=== PATIENT | female | born 1955 | race Caucasian/White ===

== ENCOUNTER 2025-01-17 14:09 | Outpatient (OUT) | payer MEDICARE, SELFPAY ==
--- OUTSIDE RECORDS SUMMARY | 2024-12-06 02:30 | XMS_ITS ---
Author Organization [facility] Address [address] [place] [address] Care Team Providers Care Edge Polisher Name Role Phone Chino Baker Primary Care Provider Unavailab Perez Cantor Unavailable [phone] REASON FOR VISIT Left Total Knee Arthroplasty @ [facility] Encounters Encounter Location Date Provider Diagnosis [facility] [address] [facility] [facility] [address] 12/06/2024 Perez Bolaños Primary osteoarthrit is of left knee M17.12 Assessments Encounter Date Diagnosis (ICD Code) Assessment Notes Treatment Notes Treatment Clinical Notes Section Notes 12/06/2024 Primary osteoarthritis of left k nee (ICD-10 - M17.12) Plan Of Treatment Next Appt Details Provider Name:Perez Bolaños, 02/04/2025 09:20:00 AM, [address] [place] [address], [place], [address], Progress Notes * HUMA PEDRO IDOB:[birth year] (69 yo F)Acc No.[id number]:12/06/2024 Patient:?HUMA PEDRO I :?Perez Bolaños, MDDOB:1955???Age:69 Y ???Sex:FemaleDate:12/06/2024Phone:[phone]:[address] [facility], [id number]:ABDIRIZAK Blank * Images: * Electronic signature of Perez Bolaños MD on 01/17/2025 at 02:12 PM ESTSign off status: Pending * Provider: Logan Bolaños MD Date: Generated for Printing/Faxing/eTransmitting on:?01/17/2025 02:12 PM EST
--- OUTSIDE RECORDS SUMMARY | 2024-12-24 04:50 | XMS_ITS ---
Author Organization [facility] Address [address] [place] [address] Care Team Providers Care Nut Threader Name Role Phone Might Chino REVELES Primary Care Provider Unavailab Perez Cantor Unavailable [phone] Jose R Holder Unavailable [phone] REASON FOR VISIT 1st Post-Op Left TKA 12/06/24, Status post left total knee arthroplasty 12/06/24 Medications Medication SIG (Take, Route, Frequency, Duration) Notes Start Date End Date Status Mobic 15 mg 1 tab(s) orally once a day; Dura tion: 30 days 06/10/2021Not-TakinglisinoprilActiveMobic 15 mg1 tab(s) orally once a day; Duration: 30 days08/27/2021Not-TakingMobic 15 mg1 tab(s) orally once a day; Duration: 45 days04/27/2022Not-TakingMobic 15 mg1 tab(s) orally once a day; Duration: 45 day(s)01/27/2022Not-TakingmeloxicamActiveMobic 15 mg1 tab(s) orally once a day; Duration: 30 days08/25/2022Not-Taking Problems Problem Type SNOMED Code ICD Code Onset Dates Problem Status W/U Status Risk Notes Problem Artificial knee join t present ([id number]) Status post left knee replacement (Z96.652) ActiveconfirmedProblemHistory of musculoskeletal operation (479661988)Aftercare following joint replacement surgery (Z47.1)Activeconfirmed Encounters Encounter Location Date Provider Diagnosis [facility] [address] [place] [address] 12/24/2024 Jose R Hloder Status post left kne e replacement Z96.652 and Aftercare following joint replacement surgery Z47.1 Assessments Encounter Date Diagnosis (ICD Code) Assessment Notes Treatment Notes Treatment Clinical Notes Section Notes 12/24/2024 Status post left knee replacemen t (ICD-10 - Z96.652) Status post left total knee qqitoudthjul58/2/2510ftercare following joint replacement surgery (ICD-10 - Z47.1)Status post left total knee ipgrzloxymdo65/2/2510OtherDiscussed treatment options at length with patient. Overall patient is doing very well. She is happy with her progress at this time. Symptoms are continuing to improve. Incision appears to be healing well at this time. Patient instructed to continue physical therapy to work on stretching and range of motion. Continue activity modification, rest, ice, compression, elevation for pain. Take Tylenol and anti-inflammatories if able for pain. She is in agreement today plan. All questions answered andconcerns addressed. Plan to see patient back in 6 weeks for repeat clinical and radiographic evaluation.Status post left total knee kwdpsizzurff58/2/25 Plan Of Treatment Treatment Notes Assessment Notes Other Discussed treatment options at length with patient. Overall patient is doing very well. She is happy with her progress at this time. Symptoms are continuing to improve. Incision appears to be healing well at this time. Patient instructed to continue physical therapy to work on stretching and range of motion. Continue activity modification, rest, ice, compression, elevation for pain. Take Tylenol and anti-inflammatories if able for pain. She is in agreement today plan. All questions answered and concerns addressed. Plan to see patient back in 6 weeks for repeat clinical and radiographic evaluation. Pending Test Test Name Order Date RSS: KNEE POST OP LEFT 3V AP,LAT, PATELL A [id number] 12/24/2024 Next Appt Details Follow Up: 6 Weeks, Reason: Provider Name:Perez Bolaños, 02/04/2025 09:20:00 AM, [address], [place], [address], Progress Notes * HUMA PEDRO:[birth year] (69 yo F)Acc No.[id number]:12/24/2024 Progress Notes Patient: HUMA FAYE I :?EVA Feliciano-CDOB:1955???Age:69 Y???Sex:FemaleDate:12/24/2024Phone:[phone]:[address] [facility], [id number]:Chino Might, ENERGY SALES CONSULTANT Subjective: * Chief Complaints: * 1 . 1st Post-Op Left TKA 12/06/24. 2. Status post left total knee arthroplasty 12/06/24. * HPI: ???HPI:? Patient is a 69-year-old female who presents for follow-up evaluation 2 weeks status post left total knee arthroplasty. Patient notes overall she is doing very well. She notes pain, swelling and symptoms are continuing to improve. She is no longer ambulating with an assistive device. She notes she is continuing to progress with physical therapy and is happy with her range of motion. She does note mild stiffness and pain with flexion but denies any pain with extension. She denies any pain to the incision site. Denies any obvious drainage. She denies any numbness or tingling. She notes her sleep has been improving over the past several days. She denies anyfevers, chills, chest pain, shortness of breath, calf pain. * ROS: ???Constitutional:?Denies?Chills.?Respiratory:?Denies?Shortness of Breath.?Cardiovascular:?Denies?Chest pain.? * Medical History: * Surgical History: L UMBAR 1985, BLADDER CYST 2002, TUBAL LIGATION 1977, Left total knee replacement 12/06/2024. * Medications: T aking meloxicam , Taking lisinopril , Not-Taking/PRN Mobic 15 mg tablet 1 tab(s) orally once a day , Not-Taking/PRN Mobic 15 mg tablet 1 tab(s) orally once a day , Not-Taking/PRN Mobic 15 mg tablet 1 tab(s) orally once a day , Not-Taking/PRN Mobic 15 mg tablet 1 tab(s) orally once a day , Not-Taking/PRN Mobic 15 mg tablet 1 tab(s) orally once a day Objective: * Vitals: * Examination: ???General examination: ???General Examination: Patient is a pleasant well-appearing female resting comfortably in the room. No signs of acute distress. Alert and orient x 3. Normal mood and affect. Answering questions appropriately. Ambulating with a mild antalgic gait. ???X-ray Imaging Studies: ???See dictation from [facility] MRI imaging studies:. ???Left Lower Extremity: ???Skin intact with well-healing anterior incision that is well-approximated withoutany erythema, edema, warmth, tenderness to palpation, drainage, dehiscence. Mild edema. Trace effusion. Mild tenderness to palpation medial and lateral joint line. No tenderness peripatellar. Knee range of motion 0 to 100 degrees. Pain with endpoint flexion. Knee stable varus valgus stress. Stable a nterior posterior drawer. Patella tracking centrally. 5 out of 5 quad strength. Motor intact quad, hamstring, TA, GSC, EHL, FHL. Sensation intact to light touch SPN, DPN, sural, saphenous, tibial nerve distribution. No calf pain. Negative Homans. Toes are warm and well-perfused. 2+ DP pulse. ??? Assessment: * Assessment: 1.?Status post left knee replacement - Z96.652 (Primary)???2.?Aftercare [facility] joint replacement surgery - Z47.1???Status post left total knee zxyironiwkoa75/2/25. Plan: * Treatment: ?Imaging: RSS: KNEE POST OP LEFT 3V AP,LAT, PATELLA [id number] Notes: Discussed treatment options at length with patient. Overall patient is doing very well. She is happy with her progress at this time. Symptoms are continuing to improve. Incision appears to be healing well at this time. Patient instructed to continue physical therapy to work on stretching andrange of motion. Continue activity modification, rest, ice, compression, elevation for pain. Take Tylenol and anti-inflammatories if able for pain. She is in agreement today plan. All questions answered and concerns addressed. Plan to see patient back in 6 weeks for repeat clinical and radiographicevaluation.?? * Procedure Codes: 7 3562 X-ray Knee, 3 view * Follow Up: 6 Weeks Forms: * Images: * Electronic signature of Jose R Holder PA-C on 01/17/2025 at 02:12 PM ESTSign off status: Pending * Provider: Andry Holder PA-C Date: 1 Generated for Printing/Faxing/eTransmitting on:?01/17/2025 02:12 PM EST History and Physical Notes * HPI (History of Present Illness) CategorySub-CategoryDetailNotesCategory NotesHPIPatient is a 69-year-old female who presents for follow-up evaluation 2 weeks status post left total knee arthroplasty. Patient notes overall she is doing very well. She notes pain, swelling and symptoms are continuing to improve. She is no longer ambulating with an assistive device. She notes she is continuing to progress with physical therapy and is happy with her range of motion. She does notemild stiffness and pain with flexion but denies any pain with extension. She denies any pain to the incision site. Denies any obvious drainage. She denies any numbness or tingling. She notes her sleep has been improving over the past several days. She denies any fevers, chills, chest pain, shortness of breath, calf pain Examination CategorySub-CategoryDetailNotesCategory NotesGeneral examination General Examination: Patient is a pleasant well-appearing female resting comfortably in the room. No signs of acute distress. Alert and orient x 3. Normal mood and affect. Answering questions appropriately. Ambulating with a mild antalgic gait X-ray Imaging Studies See dictation from [facility] MRI imaging studies: Left Lower ExtremitySkin intact with well-healing anterior incision that is well-approximated without any erythema, edema, warmth, tenderness to palpation, drainage, dehiscence. Mild edema. Trace effusion. Mild tenderness to palpation medial and lateral joint line. No tenderness peripatellar. Knee range of motion 0 to100 degrees. Pain with endpoint flexion. Knee stable varus valgus stress. Stable anterior posteriordrawer. Patella tracking centrally. 5 out of 5 quad strength. Motor intact quad, hamstring, TA, GSC, EHL, FHL. Sensation intact to light touch SPN, DPN, sural, saphenous, tibial nerve distribution. No calf pain. Negative Homans. Toes are warm and well-perfused. 2+ DP pulse
--- OUTSIDE RECORDS SUMMARY | 2025-01-02 08:15 | XMS_ITS | Encounter Summary ---
Author Organization [facility] Address [address], [address] [place] [address] Care Team Providers Care Traffic Assistant Name Role Phone Chino Yoder CHIEF MARKETING OFFICER - FIRE PRODUCTION OPERATOR Primary Care Provider Encounter Details DateTypeDepartmentCare Team (Latest Contact Info)Fccrfucswwb28/29/2025 9:15 AM EDT - 01/02/2025 11:59 PM EDTHospital Encounter [facility] [address] [place], [place] [id number] Cresencio Longoria Discharge Disposition: Home or Self Care Social History Tobacco UseTypesPacks/DayYears UsedDateSmoking Tobacco: NeverSmokeless Tobacco: Never Comments:never smoked Alcohol UseStandard Drinks/WeekCommentsNot Currently0 (1 standard drink = 0.6 oz pure alcohol)rarelyAUDIT-CAnswerDate RecordedQ1: How often do you have a drink containing alcohol?2-4 times a month11/11/2023Q2: How many drinks containing alcohol do you have on a typical day when you are drinking?1 or Q3: How often do you have six or more drinks on one occasion?Never11/11/2023Overall Financial Resource Strain (CARDIA)AnswerDate RecordedHow hard is it for you to pay for the very basics like food, housing, medical care, and heating?Patient fuseotsk59/06/2024HQ-2AnswerDate RecordedPHQ-9 Total Paxyl459Exercise Vital SignAnswerDate RecordedOn average, how many days per week do you engage in moderate to strenuous exercise (like a brisk walk)?6 days11/11/2023On average, how many minutes do you engage in exercise at this level?60 min11/11/2023RAPARE - TransportationAnswerDate RecordedIn the past 12 months, has lack of transportation kept you from medical appointments or from getting medications?No 07/19/2024In the past 12 months, has lack of transportation kept you from meetings, work, or from getting things needed for daily living?No07/19/2024 Housing Stability Vital SignAnswerDate RecordedUnable to Pay for Housing in the Last YearNot on file05/11/2023Number of Places Lived in the Last YearNot on file 05/11/2023In the last 12 months, was there a time when you did not have a steady place to sleep or slept in ashelter (including now)?Patient aroxtthw16/06/2024 Housing Stability Vital SignAnswerDate RecordedIn the last 12 months, was there a time when you were not able to pay the mortgage or rent on time?No12/06/2024In the past 12 months, how many times have you moved where you were living?0 12/06/2024t any time in the past 12 months, were you homeless or living in a half-way (including now)?No12/06/2024UDIT-CAnswerDate RecordedQ1: How often do you have a drink containing alcohol?Never12/27/2024Q2: How many drinks containing alcohol do you have on a typical day when you are drinking?Patient does not drink12/27/2024Q3: How often do you have six or more drinks on one occasion?Never12/27/2024Exercise Vital SignAnswerDate RecordedOn average, how many days per week do you engage in moderate to strenuous exercise (like a brisk walk)?6 days11/22/2024On average, how many minutes do you engage in exercise at this level?60 min11/22/2024Hunger Vital SignAnswerDate RecordedWithin the past 12 months, you worried that your food would run out before you got the money to buymore.Never true12/06/2024Within the past 12 months, the food you bought just didn't last and you didn't have money to get more.Never true12/06/2024PRAPARE - TransportationAnswerDate RecordedIn the past 12 months, has lack of transportation kept you from medical appointments or from getting medications?No 12/06/2024In the past 12 months, has lack of transportation kept you from meetings, work, or from getting things needed for daily living?No12/06/2024HC UtilitiesAnswerDate RecordedIn the past 12 months has the [employer], gas, oil, or water company threatened to shut off services in your home?No12/06/2024 Interpersonal Safety Domain Source: IP Abuse ScreeningAnswerDate Recorded Physical doimdPyozwa39/02/2025Verbal gnyupYjaamx50/02/2025Emotional abuseDenies 12/06/2024Financial bhclgGntsjr03/02/2025Sexual nakgkIegmyj02/02/2025 CommentsNoSex and Gender InformationValueDate RecordedSex Assigned at Ivlffx3911/11/2023 8:21 AM EDTLegal SqkZxwqvl70/10/2013 9:23 AM ESTGender Identity Qjraaj7711/11/2023 8:21 AM EDTSexual OrientationNot on filedocumented as of this encounter Medications at Time of Discharge MedicationSigDispense QuantityRefillsLast FilledStart DateEnd Date aspirin (SUBHA ASPIRIN) 325 MG tablet Take 1 tablet by mouth daily 30 tablet 12/06/2024 meloxicam (MOBIC) 15 MG tablet Indications:Chronic pain of left kneeTake 1 tablet by mouth daily 90 tablet Cranberry 50 MG CHEW Take 1 Dose by mouth daily magnesium oxide (MAG-OX) 400 (240 Mg) MG tablet Take 1 tablet by mouth daily lisinopril (PRINIVIL;ZESTRIL) 10 MG tablet Indications:Essential hypertensionTAKE ONE TABLET BY MOUTH DAILY 90 tablet Cyanocobalamin (VITAMIN B 12 PO) Take by mouth Glucosamine 500 MG CAPS Take by mouth Patient takes 2 capsules Multiple Vitamins-Minerals (ONE-A-DAY WOMENS 50 PLUS PO) Take 1 tablet by mouth daily Holbrook-3 Fatty Acids (FISH OIL) 1200 MG CAPS Take 1,200 mg by mouth daily IRON CR PO Take 65 mg by mouth daily calcium carbonate (OSCAL) 500 MG TABS tablet Take 600 mg by mouth 2 times dailydocumented as of this encounter Progress Notes * Cresencio Longoria - 01/02/2025 9:15 AM EDT [facility] Outpatient Physical Therapy Daily Note Patient: Marianela Corado : 1955 CSN #: [id number] Referring Physician: Perez Bolaños MD Date: 01/02/2025 Diagnosis: L knee OA, s/p L TKA Treatment Diagnosis: s/p L TKA, generalized weakness Onset Date: 12/06/24 PT Insurance Information: [employer] Medicare Total # of Visits Approved: 12 Per Physician Order Total # of Visits to Date: 11 No Show: 0 Canceled Appointment: 0 01/10/25 Plan of Care/Recert Due Pre-Treatment Pain: 3/10 Subjective: Pt reports with 3/10 pain. States pain was a little worse this morning Exercises: Exercise 1: HEP: ankle pumps x20 every hour, heel prop x2 min, 3x/day, quad sets 10 sec hold x10, 3x/day, supine heel slide with strap or seated heel slide x10, x3/day. Education on icing and elevation Exercise 2: SCI FIT x 10 min lvl 4 Exercise 3: step stretches 3 x 30 each//slant board stretch - held ext today Exercise 5: TKE ball on wall 15x 5 hold // TKE with Tband GTB x15//slant board stretch 3x30 Exercise 6: heel slide with therapist overpressure x 15 - no overpressure today Exercise 7: Star trac knee extension 1 pl 2x10 Exercise 9: standing march , heel raises, hamstring curls , hip abd/ext x 15 Exercise 10: FSU/SSU/SD 6 15x Exercise 11: sit to stands 10x2 no hands Manual: Joint Mobilization: knee ext mobs Other: PROM in seated position and supine Assessment Assessment: Pain remain mild. Continnues with moderate swelling around knee and calf. Supine knee flexion 108-110 degm extension -2 deg. Walking with no device with good step lucy demian. Will continue to progress towards goals Activity Tolerance Activity Tolerance: Patient tolerated treatment well Patient Education Patient Education: HEP Pt verbalized/demonstrated good understanding: [x] Yes [] No, pt required further clarification. Post Treatment Pain: 04/16 Plan Plan Frequency: 3 Plan weeks: 4 Goals (Total # of Visits to Date: 11) Short Term Goals Time Frame for Short Term Goals: 2 weeks Short Term Goal 1: Patient will be initiated with a HEP - MET Short Term Goal 2: Patient will improve L knee flexion ROM to at least 90* - MET : 105 degrees (12/19) Short Term Goal 3: Patient will improve L knee extension to at least -5* - Progressing (lacking 6 12/21) Group Home Goals Time Frame for Polisher Balance Screwhead Goals : 4 weeks Polisher Balance Screwhead Goal 1: Patient will be independent and compliant with a HEP Group Home Goal 2: Patient will improve L knee ROM to at least 0-115* for normal ambulation and stair negotiation. Progressing (12/21) lacking 6 - 107 degrees Group Home Goal 3: Patient will improve L LE strength to >/= 4/5 in all major joints and planes for ADLs. Polisher Balance Screwhead Goal 4: Patient will be able to negotiate a flight of stairs reciprocally using one hand rail. Polisher Balance Screwhead Goal 5: The patient will report 70% improvement in overall symptoms and function. Minutes Tracking: Time In: 915 Time Out: 1000 Minutes: 44 Timed Code Treatment Minutes: 43 Minutes Cresencio Jordan Date: 01/02/2025 Cosigned by Perez Whatley, PT at 01/02/2025 10:47 AM EDT documented in this encounter Plan of Treatment DateTypeDepartmentCare Team (Latest Contact Info)Idutacrirpo76/19/2026 2:20 PM EDTOffice Visit [facility] [address] [place] [address] Chino Yoder APRN - CHANEL [address] [place] [address] 6 month check11/28/2025 2:20 PM EDTOffice Visit [facility] [address] [place] [address] Chino Yoder APRN - CNP [address] [place] [address] AWVdocumented as of this encounter Goals GoalPatient Goal TypeAssociated ProblemsRecent ProgressPatient-Stated?Author loose weight LifestyleNoFuhrer, Cynthiadocumented as of this encounter Visit Diagnoses Not on filedocumented in this encounter Additional Health Concerns AssessmentNoted TimeA fall risk assessment has been completed for the patient 11/22/2024 11:11 AM EDTA Body Mass Index follow-up plan has been documented for the ulrkbhp5305/07/2022 7:18 AM ESTdocumented as of this encounter Care Teams Team MemberRelationshipSpecialtyStart DateEnd Date Chino Yoder APRN - CNP [address] [place] [address] PCP - GeneralFamily Medicine11/23/24documented as of this encounter
--- OUTSIDE RECORDS SUMMARY | 2025-01-04 08:38 | XMS_ITS | Encounter Summary ---
Author Organization [facility] Address [address], [address] [place] [address] Care Team Providers Care Product Delivery Specialist Name Role Phone Chino Yoder STEAM CRANE OPERATOR - ELECTRONIC DATA INTERCHANGE SPECIALIST Primary Care Provider Encounter Details DateTypeDepartmentCare Team (Latest Contact Info)Mdilgnsyate03/31/2025 9:38 AM EDT - 01/04/2025 11:59 PM EDTHospital Encounter [facility] Therapy [address] [place], [place] [phone] Perez Whatley, MARK Discharge Disposition: Home or Self Care Social [...] like food, housing, medical care, and heating?Patient nrurjans66/06/2024HQ-2AnswerDate RecordedPHQ-9 Total Boxgy863Exercise Vital SignAnswerDate RecordedOn average, how many days [...] sleep or slept in ashelter (including now)?Patient zmcunmpr99/06/2024 Housing Stability Vital SignAnswerDate RecordedIn the last 12 months, was there a time when you were not able to pay the mortgage or rent on time?No12/06/2024In the past 12 months, how many times have you moved where you were living?0 12/06/2024t any time in the past 12 months, were you homeless or living in a fci (including now)?No12/06/2024UDIT-CAnswerDate RecordedQ1: How often do you [...] before you got the money to buymore.Never true10/02/2025Within the past 12 months, the food you [...] RecordedIn the past 12 months has the [employer], gas, oil, or water company threatened to shut off services in your home?No12/06/2024 Interpersonal Safety Domain Source: IP Abuse ScreeningAnswerDate Recorded Physical dqimoOprntr14/02/2025Verbal eanqnSmfznq10/02/2025Emotional abuseDenies 12/06/2024Financial wbczbDtwrrp85/02/2025Sexual recizAyeunz99/02/2025 CommentsNoSex and Gender InformationValueDate RecordedSex Assigned at Aimfsz2211/11/2023 8:21 AM EDTLegal SjoUzlmpr81/10/2013 9:23 AM ESTGender Identity Lutprb3011/11/2023 8:21 AM EDTSexual OrientationNot on filedocumented as [...] PO) Take 1 tablet by mouth daily [place]-3 Fatty Acids (FISH OIL) 1200 MG CAPS Take 1,200 mg by mouth daily IRON CR PO Take 65 mg by mouth daily calcium carbonate (OSCAL) 500 MG TABS tablet Take 600 mg by mouth 2 times dailydocumented as of this encounter Progress Notes * Perez Whatley, PT - 01/04/2025 9:45 AM EDT [facility] Outpatient Physical Therapy Daily Note Patient: Marianela Corado : 1955 [facility] #: [id number] Referring Physician: Perez Bolaños MD Date: 01/04/2025 Treatment Diagnosis: s/p L TKA, generalized weakness Onset Date: 12/06/24 PT Insurance Information: [employer] Medicare Total # of Visits Approved: 12 Per Physician Order Total # of Visits to Date: 12 No Show: 0 Canceled Appointment: 0 02/03/25 Plan of Care/Recert Due Pre-Treatment Pain: 2/10 Subjective: Patient reports 2/10 knee pain coming into therapy. She reports she has felt good over the last couple of days. 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 Exercises: Exercise 2: SCI FIT x 8 min lvl 4 Exercise 7: Star trac knee extension 2 pl 2x10, hamstring curls 35# 2x10 Exercise 8: SLR 2x10 with focus on quad set Exercise 10: FSU/SSU/SD 6 15x Exercise 11: sit to stands 10x2 no hands Measures for physician update Manual: Joint Mobilization: knee ext mobs, patella mobs Soft Tissue Mobilizaton: STM to medial and lateral knee Other: PROM in seated position and supine Assessment Body Structures, Functions, Activity Limitations Requiring Skilled Therapeutic Intervention: Decreased functional mobility , Decreased ADL status, Decreased ROM, Decreased strength, Decreased endurance, Decreased balance, Decreased high- level IADLs, Decreased posture, Increased pain Assessment: The patient has attended her initial evaluation and 11 follow-up appointments working toward her residential goals. The patient reports she is 90% better overall. She reports she has been able to sleep well over the last 2 nights and reports she has been able to perform all of her normal ADLs besides leading horses. On reassessment the patient demonstrates improving L LE strength with hip flexors measuring 4-/5, quads 4+/5, hamstrings 5/5, tibialis anterior 5/5, gluteus medius 4+/5, improving knee ROM: -6-114* in supine, and she is able to ambulate without an AD with a slight antalgic gait pattern. Offered continued PT due to her knee extension ROM deficit, but she elected to continue independently and is planning to work out at [employer]. Reviewed a HEP along with a gym exercise program to continue. The patient will be placed on hold at this time. Activity Tolerance Activity Tolerance: Patient tolerated treatment well Patient Education Patient Education: HEP Pt verbalized/demonstrated good understanding: [x] Yes [] No, pt required further clarification. Post Treatment Pain: 04/16 Plan Plan Frequency: 3 Plan weeks: 4 Goals (Total # of Visits to Date: 12) Short Term Goals Time Frame for Short [...] least -5* - Progressing (lacking 6 12/21) Ship Propeller Finisher Goals Time Frame for Ship Propeller Finisher Goals : 4 weeks Correction Goal 1: Patient will be independent and compliant with a HEP Correction Goal 2: Patient will improve L knee ROM to at least 0-115* for normal ambulation and stair negotiation. Progressing (12/21) lacking 6 - 107 degrees Correction Goal 3: Patient will improve L LE strength to >/= 4/5 in all major joints and planes for ADLs. Correction Goal 4: Patient will be able to negotiate a flight of stairs reciprocally using one hand rail. Correction Goal 5: The patient will report 70% improvement in overall symptoms and function -MET 90%better Minutes Tracking: Time In: 45 Time Out: 1030 Minutes: 45 Timed Code Treatment Minutes: 43 Minutes Perez Whatley PT, DPT, OCS, Cert. DN Date: 01/04/2025 documented in this encounter Plan of Treatment DateTypeDepartmentCare Team (Latest Contact Info)Wnheppuauda94/19/2026 2:20 PM EDTOffice Visit [facility] [address] [place] [phone] Chino Yoder APRN - CNP [address] [phone] 6 month check11/28/2025 2:20 PM EDTOffice Visit [facility] [address] [place] [address] Chino Yoder APRN - CNP [address] [place] [address] AWVdocumented as of this encounter Goals GoalPatient Goal TypeAssociated ProblemsRecent ProgressPatient-Stated?Author loose weight LifestyleNoFuhrer Cynthiadocumented as of this encounter Visit Diagnoses Not on filedocumented in this encounter Additional Health Concerns AssessmentNoted TimeA fall risk assessment has been completed for the patient 11/22/2024 11:11 AM EDTA Body Mass Index follow-up plan has been documented for the yjewweo2905/07/2022 7:18 AM ESTdocumented as of this encounter Care Teams Team MemberRelationshipSpecialtyStart DateEnd Date Chino Yoder APRN - CNP [address] [place] [address] PCP - GeneralFamily Medicine11/23/24documented as of this encounter
--- OUTSIDE RECORDS SUMMARY | 2025-01-17 14:12 | XMS_ITS | Encounter Summary ---
Author [facility] Address [address], [address] [place] [address] Care Team Providers Care Incising Machine Operator Name Role Phone Chino Yoder YURI - WARP BLEACHING VAT TENDER Primary Care Provider Encounter Details DateTypeDepartmentCare Team (Latest Contact Info)Imddesgchnw04/30/2025Care Coordination [facility] Fire Prevention Inspector Felisa Nielsen LPN Episode status: Closed (Care Transitions) Social History Tobacco UseTypesPacks/DayYears UsedDateSmoking Tobacco: NeverSmokeless [...] like food, housing, medical care, and heating?Patient xitojpui03/06/2024HQ-2AnswerDate RecordedPHQ-9 Total Nvhhm148Exercise Vital SignAnswerDate RecordedOn average, how many days [...] steady place to sleep or slept in naylorelter (including now)?Patient eniwhezz67/06/2024 Housing Stability Vital SignAnswerDate RecordedIn the last 12 months, was there a time when you were not able to pay the mortgage or rent on time?No12/06/2024In the past 12 months, how many times have you moved where you were living?0 12/06/2024t any time in the past 12 months, were you homeless or living in a snf (including now)?No12/06/2024UDIT-CAnswerDate RecordedQ1: How often do you [...] RecordedIn the past 12 months has the electric, gas, oil, or water company threatened to shut off services in your home?No12/06/2024 Interpersonal Safety Domain Source: IP Abuse ScreeningAnswerDate Recorded Physical rzjvgYjbpgx54/02/2025Verbal zzcilBxkhyv34/02/2025Emotional abuseDenies 12/06/2024Financial geixaFdsfqc78/02/2025Sexual wxannHfirau71/02/2025 CommentsNoSex and Gender InformationValueDate RecordedSex Assigned at Ftxfuz6611/11/2023 8:21 AM EDTLegal TfpHwsnfd40/10/2013 9:23 AM ESTGender Identity Fhzkar7111/11/2023 8:21 AM EDTSexual OrientationNot on filedocumented as of this encounter Plan of Treatment DateTypeDepartmentCare Team (Latest Contact Info)Xkplfowpagx62/19/2026 2:20 PM EDTOffice Visit [address] [phone] Chino Yoder APRN - WARP BLEACHING VAT TENDER [address] [phone] 6 month check11/28/2025 2:20 PM EDTOffice Visit [facility] [address] [place] [address] Chino Yoder APRN - WARP BLEACHING VAT TENDER [address] [place] [address] AWVdocumented as of this encounter Goals GoalPatient Goal TypeAssociated ProblemsRecent ProgressPatient-Stated?Author loose weight LifestyleNoFuhrer, Cynthiadocumented as of this encounter Visit Diagnoses Not on filedocumented in this encounter Additional Health Concerns AssessmentNoted TimeA fall risk assessment has been completed for the patient 11/22/2024 11:11 AM EDTA Body Mass Index follow-up plan has been documented for the nyrdnnu6905/07/2022 7:18 AM ESTdocumented as of this encounter Care Teams Team MemberRelationshipSpecialtyStart DateEnd Date Might, Chino Guerra, ELECTRONIC EQUIPMENT SET UP OPERATOR - WARP BLEACHING VAT TENDER [address] [phone] PCP - GeneralFamily Medicine11/23/24documented as of this encounter
--- OUTSIDE RECORDS SUMMARY | 2025-01-17 14:12 | XMS_ITS ---
Author Organization [facility] Address [facility], [address] [place] [address] Care Team Providers Care Patrol Officer Name Role Phone Chino Yoder UNIVERSITY ADMINISTRATOR - SPRAY GUN STRIPER Primary Care Provider Care Transitions Status:Closed (Closed) Start date:12/10/2024 Enrollment date:12/10/2024 Enrollment reason:Discharged from inpatient End date:01/10/2025 Close reason:Patient graduated Related social drivers of health:Social Connections, Financial Resource Strain Continued Care and Services Coordination
--- OUTSIDE RECORDS SUMMARY | 2025-01-17 14:12 | XMS_ITS | Clinical Summary ---
Author Organization [facility] Address [address] [place], [place] [phone] Care Team Providers Care Sas Architect Name Role Phone Unavailable Primary Care Provider Unavailabl e Allergies No known active allergies Medications MedicationSigDispense QuantityRefillsLast FilledStart DateEnd DateStatus lisinopril (ZESTRIL, PRINIVIL) 10 mg tablet Take 10 mg by mouth once daily.Active aspirin 81 mg chewable tablet Take 81 mg by mouth once daily.Active Social History Tobacco UseTypesPacks/DayYears UsedDateSmoking Tobacco: NeverSmokeless Tobacco: NeverAlcohol UseStandard Drinks/WeekCommentsYes2 (1 standard drink = 0.6 oz pure alcohol)WeeklyCommentsUnknownSex and Gender InformationValueDate RecordedSex Assigned at BirthNot on fileLegal OtlJqbzuh78/26/2019 4:05 PM EDT Gender IdentityNot on fileSexual OrientationNot on file Last Filed Vital Signs Vital SignReadingTime TakenCommentsBlood Hiynnaeq483/7206 4:58 PM EDT Jbxbt0491 4:58 PM SQEUleuqsavytn43.1 ??C (98.7 ??F)08/30/2018 4:58 PM EDTRespiratory Xuhl2480 4:58 PM EDTOxygen Qiminldyue88%08/30/2018 4:58 PM EDTInhaled Oxygen Concentration--Jwsiuc70.8 kg (145 lb)08/30/2018 4:58 PM EDT Lidtst461.9 cm (5' 1 )08/30/2018 4:58 PM EDTBody Mass Index27. 4:58 PM EDT Plan of Treatment Not on file Insurance * Guarantor: Marianela Corado TypeRelation to PatientDate of BirthPhone Billing KhjadyjHnapazxlScsh52/01/1956 [address] [place] [address]
--- OUTSIDE RECORDS SUMMARY | 2025-01-17 14:13 | XMS_ITS | Patient Health Record ---
Author Organization [facility] e [facility] Address [address] [place] [address] Care Team Providers Care Risk Intern Name Role Phone Might Chino REVELES Primary Care Provider Unavailab Perez Cantor Unavailable [phone] Jose De JesusArchiea Unavailable [phone] Renea Murry Unavailable [phone] Jaqui Iqbal Unavailable Jose R Holder Unavailable [phone] Allergies No Known Allergies Results Component Value Reference Range Notes Type Screen Reviewed date:11/20/2024 10:08:45 AM Interpretation: Performing Lab: Notes/Report: [facility] [address] [place] [address] Electromechanisms Design Drafter: Ton Vigil MD Type + Screen Sample Expiration 12/09/2024,235 9 Type + ScreenArm Band Number [id number] + ScreenABO/Rh(D) O POSITIVEType + ScreenAntibody Screen NEGATIVEComp Metabolic Prof Reviewed date:11/20/2024 10:08:57 AM Interpretation: Performing Lab: Notes/Report: [facility] [address] [place] [address] Electromechanisms Design Drafter: Ton Vigil MDNA (Sodium)319870-235 mmol/LK (Potassium)5.33.7- 5.3 mmol/AJosrrmkr16628-977 mmol/UWJ61834-33 mmol/LAnion Ctz062-27 mmol/LGlucose 9474-99 mg/dLBUN (Urea N)168-23 mg/dLCreatinine0.70.50-0.90 mg/dLeGFR>90>60 mL/min/1.73m2 therapy that affects renal tubular secretion. results calculated using previous equations. eGFR results are calculated without a race factor using the 2020 CKD-EPI These results are not intended for use in patients <18 years of age. Careful clinical correlation is recommended, particularly when comparing to extra-renal metabolism of creatine, excessive creatine ingestion, or following The CKD-EPI equation is less accurate in patients with extremes of muscle mass, equation. BUN/CRE Rqmba266-00Ndyzqup17.78.6-10.4 mg/dLProtein, Total7.66.6-8.7 g/dLAlbumin 4.73.5-5.2 g/dLAlbumin/Glob Ratio1.61.0-2.5Bilirubin, Total0.20.00-1.20 mg/dL Alkaline Wcmy0437-069 U/YRFD9870-86 U/LVGQ3237-08 U/LPerforming Lab:see [address] [place] [id number] Urinalysis Micro Reviewed date:11/20/2024 10:08:49 AM Interpretation: Performing Lab: Notes/Report: [address] [place], [place] [address] Electromechanisms Design Drafter: Ton Vigil MDUrine WBC's0 TO 20-5 /HPFUrine RBC's0 TO 20-2 /HPF Epithelial cells0 TO 20-25 /HPFEpithelial, Renal0 TO 20 /HPFBacteriaTRACENONE Performing Lab:see [address] [place] [address] UA w Reflex Culture Reviewed date:11/20/2024 10:08:53 AM Interpretation: Performing Lab: Notes/Report: [address] [place] [id number] Electromechanisms Design Drafter: CRUZITO RobolorYellowYELClarity, UrineClearCLEAR Glucose,Semi-qnt,UrNEGATIVENEG mg/dLBilirubin, SemiQt,UrNEGATIVENEGKetones, UrineNEGATIVENEG mg/dLSpec. [place],Ur<1.0051.010-1.020Blood, UrineNEGATIVENEG PH,Ur7.55.0-9.0Protein, Semi-qnt,UrNEGATIVENEG mg/dLUrobilinogen,UrNormal0.0-1.0 EU/dLNitrite,UrNEGATIVENEGLeukocyte EsteraseTRACENEGPerforming Lab:see [facility] [address] [place] [address] [place] [address] XR CHEST (2 VW) Reviewed date:11/20/2024 10:07:37 AM Interpretation: Performing Lab: Notes/Report: EXAMINATION: Performed at: [address] [place] [address] Surgery Scheduling Reviewed date:12/10/2024 10:20:04 AM Interpretation: Performing Lab: Notes/Report: Primary Insurance Company:Medicare AetnaSurgeon/Assist:MILES Varelaurgery [facility] 06, 2024Procedure:Left Total Knee Arthroplasty CPT 02824Hppagzn Equipment:Kimi PersonaDiagnosis:Left Knee Pain/OAAdmission Type:surgery admit 23 hrAnesthesia Type/CPNB:Regional/SpinalBed 23 hrLatex AllergynoLab Location:[facility] APP NEEDEDScheduler:Meka Physician:Chino Willard/Pooja Reviewed date:11/20/2024 10:09:00 AM Interpretation: Performing Lab: Notes/Report: [address] [place] [address] Electromechanisms Design Drafter: JONNY Rob29.923.1-33.7 sec 62.0-94.0 IV Heparin Therapy Range: Performing Lab:see [address] [place] [address] PT Reviewed date:11/20/2024 10:09:03 AM Interpretation: Performing Lab: Notes/Report: [address] [place] [address] Electromechanisms Design Drafter: Ton Sturtz, MDProthrombin Time13.312.0-15.0 secINR1.0 High Anticoagulant Intensity: INR = 2.5-3.5 Moderate Anticoagulant Intensity: INR = 2.0-3.0 Therapeutic Range: Performing Lab:see [facility] [address] [place] [address] CBC with Diff Reviewed date:11/20/2024 10:09:11 AM Interpretation: Performing Lab: Notes/Report: [address] [place] [address] Electromechanisms Design Drafter: Ton Vigil MDWBC Count6.13.5-11.3 k/uLRBC Count4.643.95-5.11 m/bECwavqdjlko53.011.9-15.1 g/oCKmiaebgcnf07.036.3-47.1 %MCV92.782.6-102.9 fLMCH 30.225.2-33.5 quLIAW05.628.4-34.8 g/dLRDW12.011.8-14.4 %Platelet Giwit520877-405 k/uLMPV9.88.1-13.5 fLNRBC Automated0.00.0 per 100 WBCNeutrophil (Seg)4636-65 % Lsesiqbxuu6120-76 %Caozwmhi093-58 %Mbinzdxnne15-2 %Qpzngpnv85-4 %Immature Zwznixvkqac50 %Abs.Neutrophil (Seg)2.831.50-8.10 k/uLAbs. Lymph2.241.10-3.70 k/uLAbs. Monocyte0.650.10-1.20 k/uLAbs. Eosinophil0.250.00-0.44 k/uLAbs. Basophil0.090.00-0.20 k/uLAbs.Imm.Granulocyte<0.030.00-0.30 k/uLPerforming Lab: see [address] [place] [address] MRSA, DNA, Nasal Reviewed date:11/20/2024 10:08:42 AM Interpretation: Performing Lab: Notes/Report: [facility] [address] [place] [address] Electromechanisms Design Drafter: Herson Dobbs MD [address] [place], [place] [address] Electromechanisms Design Drafter: MILES Robpecimenoam Description.NASAL SWABMRSA, DNA, Nasal NEGATIVENEG NEGATIVE: MRSA DNA not detected by nucleic acid amplification. The test is not intended to identify patients with staphylococcal infections. Results should be used as an adjunct to nosocomial control efforts to identify Results should not be used to guide or monitor treatment for MRSA infections. patients needing enhanced precautions. Performing Lab:see note [facility] [address] [place] [address] [place] [id number] XR KNEE LEFT (1-2 VIEWS) Reviewed date:12/07/2024 07:37:33 AM Interpretation: Performing Lab: Notes/Report: EXAM: Performed at: [address] [place] [id number] Hgb Hct Reviewed date:12/07/2024 07:37:33 AM Interpretation: Performing Lab: Notes/Report: [address] [place], [place] [address] Electromechanisms Design Drafter: Ton Vigil MDHemoglobin11.711.9-15.1 g/mKFbqxuymnla69.936.3- 47.1 %Performing Lab:see [address] [place] [address] Basic Metabolic Prof Reviewed date:12/07/2024 07:37:33 AM Interpretation: Performing Lab: Notes/Report: [address] [place] [address] Electromechanisms Design Drafter: Ton Vigil MDNA (Sodium)397546-428 mmol/LK (Potassium)4.33.7- 5.3 mmol/KXggcvnnb06466-165 mmol/YIF84717-00 mmol/LAnion Wod714-97 mmol/LGlucose 76984-09 mg/dLBUN (Urea N)198-23 mg/dLCreatinine0.60.50-0.90 mg/dLeGFR>90>60 mL/min/1.73m2 Careful clinical correlation is recommended, particularly when comparing to extra-renal metabolism of creatine, excessive creatine ingestion, or following eGFR results are calculated without a race factor using the 2020 CKD-EPI results calculated using previous equations. therapy that affects renal tubular secretion. The CKD-EPI equation is less accurate in patients with extremes of muscle mass, equation. These results are not intended for use in patients <18 years of age. BUN/CRE Heira336-03Pjgpnrc0.38.6-10.4 mg/dLPerforming Lab:see [facility] [address] [place] [address] Reason For Referral Reason APPROVED FOR SYNVISC SERIES................................NOT SCHEDULED......................................[facility] FOR LEFT KNEE SYNVISC SERIES Diagnosis 1 Primary osteoarthrit is of left knee (M17.12) Referral Organization [facility] Office Referring Provider First Name Kenya Referring Provider Last Name Jose De Jesus Referring Provider Speciality Nurse Practitioner Referred Organization [facility] Referred Address [address],[place], [place],[address], Procedure 1 SYNVISC INJ 1 MG (J7 325) General Notes Lizz Santos 024 08:54:43 AM > AUTHORIZATION REQUEST FORM AND CLINICALS FAXED TO [employer] @ [phone] Kayla 02/14/2024 11:35:36 AM > PRECIOUSINGDanielle Kayla 02/16/2024 08:20:42 AM > CALLED ADELINA @ [phone] AND SPOKE WITH SREE I HADN'T RECEIVED AUTHORIZATION LETTER. AUTHORIZATION # [id number] APPROVED AND VALID 02/10/24-02/09/25. SHE REFAXED AUTHORIZATION TO ME. SCANNED INTO CHART., Alissa Cramer 02/16/2024 08:55:12 AM > Please order synvisc series for left knee., Justine Gamble 02/21/2024 02:09:33 PM >1 Synvisc Series ordered..IF PATIENT IS SCHEDULED FOR MARCH THIS REFERRAL NEEDS TO GO BACK TO [facility] SO THEY CAN VERIFY THAT INSURANCE IS ACTIVE FOR 2024, Essence Benites 02/22/2024 02:16:43 PM > SYNVISC SERIES RECEIVED, LOGGED, John ROGERS Monica 02/23/2024 01:34:14 PM > PATIENT IS SCHEDULED FOR MARCH, CAN YOU MAKE SURE INSURANCE IS ACTIVE FOR THEN? SEE RON NOTE ABOVE, Kailey English 02/23/2024 01:35:24 PM >CANNOT VERIFY UNTIL 03/07/2024 WE DON'T TYPICALLY HOLD COMMERSIAL INS FOR ELIGIBILITY, MEDICAIDS ONLY. IT IS THE PATIENTS RESPONSIBILITY TO MAKE US AWARE OF ANY CHANGES, Alissa Cramer 03/05/2024 09:59:35 AM >Per patient, insurance is not changing., Kailey English 03/05/2024 10:17:42 AM >NO FURTHER ACTION Referral Priority Routine Reason APPROVED.................................12/06/24................................ [employer] [facility] Left Total Knee Arthroplasty @ [facility] Diagnos is 1 Primary osteoarthritis of left knee (M17 .12) Diagnos is 2 Pain in left knee (M25.562) Referra l [facility] Referri ng Provide r First Name Perez mena Provide r Last Name Miky mena Provide r Special ity Orthopedic Surgery Referre d [facility]-23 HR OBS Referre d Address [address], [place],[address],[place] Procedu re 1 Arthroplasty Knee Total Med/Lat Compartm ents (03477) General Notes Chey Melendez 11/06/2024 12:48:20 PM >, Lizz Santos 11/06/2024 01:01:57 PM > AUTHORIZATION # [id number] APPROVED AND VALID 12/06/24-05/06/25 PER [employer]. SCANNED INTO CHART AND [facility] 11/06/2024 01:09:33 PM > Referra katiuska bose Routine Medications Medication SIG (Take, Route, Frequency, Duration) Notes Start Date End Date Status meloxicam ActiveMobic 15 mg1 tab(s) orally once a day; Duration: 30 days08/25/2022 Not-TakingMobic 15 mg1 tab(s) orally once a day; Duration: 30 days06/10/2021 Not-TakinglisinoprilActiveMobic 15 mg1 tab(s) orally once a day; Duration: 30 days08/27/2021Not-TakingMobic 15 mg1 tab(s) orally once a day; Duration: 45 days 04/27/2022Not-TakingMobic 15 mg1 tab(s) orally once a day; Duration: 45 day(s) 01/27/2022Not-Taking Social History Tobacco Use: Social History Observation Description Date Details (start date - stop date) Never Smoker NA - NA AUDIT-C (Standard) Question Answer Notes Did you have a drink containing alcohol in the p ast year? Yes How often did you have six or more drinks on one occasion in the past year? Declined to specify (0 point)How many drinks did you have on a typical day when you were drinking in the past year?Declined to specify (0 point)How often did you have a drink containing alcohol in the past year?Declined to specify (0 point)Xanmem5KtjkiicmtgzqzmBonksfudVsnhpex Control (Standard) Question Answer Notes Tobacco use: Nonsmoker Problems Problem Type SNOMED Code ICD Code Onset Dates Problem Status W/U Status Risk Notes Problem History of musculosk eletal operation (163657428) Aftercare following joint replacement surgery (Z47.1) ActiveconfirmedProblemAdhesive capsulitis of right shoulder (345812570859192) Adhesive capsulitis of right shoulder (M75.01)ActiveconfirmedProblem Osteoarthritis of knee (023923480)Primary osteoarthritis of left knee (M17.12) ActiveconfirmedProblemLong term current use of non-steroidal anti-inflammatory drug (766995673770159)NSAID long-term use (Z79.1)ActiveconfirmedProblem Artificial knee joint present (547636545711)Status post left knee replacement (Z96.652)Activeconfirmed Vital Signs Height 5'1 in 12/03/2024 Tpdqjo236 lbs5BMI28.34012/03/2024 Encounters Encounter Location Date Provider Diagnosis [facility] [address] [place] [address] 12/06/2024 Perez Bolaños Primary osteoarthritis of left knee M17.12 [facility] [address] [place] [address] 12/24/2024 Jose R Holder Status post left kne e replacement Z96.652 and Aftercare following joint replacement surgery Z47.1 [facility] [address] [place] [address] 02/06/2024 Kenya Qiuñonezb Primary osteoarthritis of left knee M17.12 [facility] [address] [place] [address] 03/21/2024 Kenya Wolffcomb Arthritis of knee, left M17.12 [facility] [address] [place] [address] 03/28/2024 Jaqui xx[place] Primary osteoarthritis of left knee M17.12 [facility] [address] [place] [address] 04/04/2024 Jaqui [place] Arthritis of knee, left M17.12 [facility] [address] [place] [address] 08/13/2024 Renea Lovely Primary osteoarthritis of left knee M17.12 [facility] [address] [place] [address] 12/03/2024 Renea Lovely Pain in left knee M25.562 and Primary osteoarthritis of left knee M17.12 [facility] [address] [place] [address] 09/20/2024 Perez Bolaños Pain in left knee M25.562 [facility] [place] [address] [place] [address] 11/06/2024 Perez Bolaños Pain in left knee M25.562 Assessments Encounter Date Diagnosis (ICD Code) Assessment Notes Treatment Notes Treatment Clinical Notes Section Notes 02/06/2024 Primary osteoarthritis of left k nee (ICD-10 - M17.12) 03/21/2024rthritis of knee, left (ICD-10 - M17.12)03/28/2024Primary osteoarthritis of left knee (ICD-10 - M17.12)04/04/2024rthritis of knee, left (ICD-10 - M17.12)08/13/2024Primary osteoarthritis of left knee (ICD-10 - M17.12) Left knee pain Left knee OA 09/20/2024Pain in left knee (ICD-10 - M25.562)11/06/2024Pain in left knee (ICD- 10 - M25.562)12/03/2024Primary osteoarthritis of left knee (ICD-10 - M17.12) Left knee pain Left knee osteoarthritis 12/03/2024Pain in left knee (ICD-10 - M25.562) Left knee pain Left knee osteoarthritis 12/06/2024Primary osteoarthritis of left knee (ICD-10 - M17.12)12/24/2024 Aftercare following joint replacement surgery (ICD-10 - Z47.1)Status post left total knee rxnvmocuhdsu72/2/2510Status post left knee replacement (ICD- 10 - Z96.652)Status post left total knee gimqyzsjrsnc38/2/2510Other Discussed treatment options at length with patient. Overall patient is doing very well. She is happy with her progress at this time. Symptoms are continuing to improve. Incision appears to be healingwell at this time. Patient instructed to continue physical therapy to work on stretching and range of motion. Continue activity modification, rest, ice, compression, elevation for pain. Take Tylenol and anti-inflammatories if able for pain. She is in agreement today plan. All questions answered andconcerns addressed. Plan to see patient back in 6 weeks for repeat clinical and radiographic evaluation.Status post left total knee sttwjnfxnjyt74/2/2512OtherAt this point, we discussed treatment options and alternatives with the patient. With the patients history of previous Synvisc series providing improvements we will go ahead and submit for another series. 03/21/2024OtherThe risks, benefits, and alternatives of the planned Synvisc injection were discussed with the patient. We also discussed possible complications, including (but not limited to) allergic reaction, pain, infection, and bleeding. The patient elected to proceed and verbally consented. Under sterile conditions, the left knee was injected with Synvisc through an anterior lateral portal. The injection was performed without difficulty and the patient tolerated the procedure well. The patient was instructed to ice and elevate and may resume normal activities tomorrow. They will call our office with adverse reactions or questions and we will see them back in one week for second Synvisc injection.03/28/2024OtherRisks, benefits, and alternatives of the plan for a Viscosupplementation injection were discussed with the patient. We also discussed possible complications, including (but not limited to) allergic reaction, pain, infection, and bleeding. The patient elected to proceed and verbally consented. The patient was instructed to ice and elevate and may resume normal activities tomorrow. They will call our office with adverse reactions or questions and we will see them back in 1 week for her third Synvisc injection. 04/04/2024OtherRisks, benefits, and alternatives of the plan for a Viscosupplementation injection were discussed with the patient. We also discussed possible complications, including (but not limited to) allergic re action, pain, infection, and bleeding. The patient elected to proceed and verbally consented. The patient was instructed to ice and elevate and may resume normal activities tomorrow. They will call our office with adverse reactions or questions and we will see them back as needed.08/13/2024OtherDiscussed treatment options with patient. At this time patient was given a handout to get home exerc ises. She is not interested in any corticosteroid injections or viscosupplementation injections at this time as they no longer give her any relief. Patient was encouraged to continue activity modification, rest, ice, elevation, and use of anti-inflammatories as needed for pain control. Patient was in agreement treatment plan. All questions and concerns were addressed at the time of the appointment. Will plan to see patient back in 3 months for repeat clinical evaluation. No radiographs required. Patient was encouraged call the office for any questions or concerns. Left knee pain Left knee OA 12/03/2024Other Discussed treatment options with patient, including operative and nonoperative interventions. Patient has failed to obtain significant relief from conservative treatments of left knee osteoarthritis including but not limited to activity modification, rest, ice, elevation, anti-inflammatories, topical rubs, bracing, home exercises, corticosteroid injections, and gel injections. Patient continues to have significant relief in the left knee that is interfering with her day-to-day activity and quality of life. Radiographs do demonstrate end-stage osteoarthritis to the left knee. Discussed with patient that she is a good candidate for left total knee arthroplasty for definitive treatment of her left knee osteoarthritis. Discussed procedure, risk, benefits, and alternatives with patient. Risks include but are not limited to bleeding, infection, fracture, hardware failure, neurovascular injury, continued pain, need for additional surgeries, VTE, and risk associated with anesthesia. Patient understood the risks and verbally consented to proceeding with left total knee arthroplasty. Patient to continue activity modification, rest, ice, elevation, and use of Tylenol as needed troll. Activity as tolerated otherwise. Patient was in agreement with treatment plan. All questions and concerns were addressed at the time of the appointment. Will plan to see patient back 2 weeks after surgery for initial postop evaluation. Patient encouraged call the office with any questions or concerns in the meantime. This note will serve as clinical documentation billed for today's appointment and for H&P purposes. Left knee pain Left knee osteoarthritis Plan Of Treatment Pending Test Test Name Order Date RSS: KNEE LEFT MIKE AP,MIKE PA ,LEFT LAT, MIKE SUNRISE - [id number] 08/13/2024 [facility] CBC WITH DIFF, CM P, PT/PTT INR, UA WITH REFLEX, TYPE and SCREEN BLOOD TYPE, TOTAL JOINT CLINIC PT/OT EVALUATION, EKG,CHEST XR, MRSA BILATERAL NARES 11/06/2024 RSS: KNEE POST OP LEFT 3V AP,LAT, PATELL A [id number] 12/24/2024 RSS- PT- s/p total knee 2-3 x per week f or 6 weeks 12/03/2024 Next Appt Details Provider Name:Perez Bolaños, 02/04/2025 09:20:00 AM, [address], [place], [address], Insurance Providers Payer Name Payer Address Payer Phone Subscriber Number Group Number Insured Name Patient Relationship to Insured Coverage Start Date Coverage End Date Medicare A[employer] [address] [place]ARCÍ[place] [phone] [id number] Maribel PEDRO - patient is the insured Medications Administered Medication Instructions Date of Administration Dosage Notes Synvisc Series mLSynvisc Gjzqcf56 mLSynvisc Eiytba13 mLSynvisc Wjczoh19 mLSynvisc Wjzdmd46 mLSynvisc Qlgvao21 mL Synvisc Qicybj59 mLSynvisc Vwzhjj93 mLSynvisc Csvcpb7904/04/2024 2 mL Medical (General) History Medical History History ICD Code High Blood Pressure: Yes Surgical History Surgery Date(Month/Year) Left total knee replacement 12/06/2024 TUBAL LIGATION 1978 BLADDER CYST 2003 LUMBAR 1986
--- OUTSIDE RECORDS SUMMARY | 2025-01-17 14:13 | XMS_ITS | Clinical Summary ---
Author Organization [facility] Address [address], [address] [place] [address] Care Team Providers Care Core Maker Helper Name Role Phone Chino Yoder TANNING WHEEL OPERATOR - TEA TASTER Primary Care Provider Allergies No known active allergies Medications MedicationSigDispense QuantityRefillsLast FilledStart DateEnd DateStatus Whiteface-3 Fatty Acids (FISH OIL) 1200 MG CAPS Take 1,200 mg by mouth dailyActive IRON CR PO Take 65 mg by mouth dailyActive calcium carbonate (OSCAL) 500 MG TABS tablet Take 600 mg by mouth 2 times dailyActive Multiple Vitamins-Minerals (ONE-A-DAY WOMENS 50 PLUS PO) Take 1 tablet by mouth dailyActive Glucosamine 500 MG CAPS Take by mouth Patient takes 2 capsulesActive Cyanocobalamin (VITAMIN B 12 PO) Take by mouthActive lisinopril (PRINIVIL;ZESTRIL) 10 MG tablet Indications:Essential hypertensionTAKE ONE TABLET BY MOUTH DAILY 90 tablet 5Active Cranberry 50 MG CHEW Take 1 Dose by mouth dailyActive magnesium oxide (MAG-OX) 400 (240 Mg) MG tablet Take 1 tablet by mouth dailyActive meloxicam (MOBIC) 15 MG tablet Indications:Chronic pain of left kneeTake 1 tablet by mouth daily 90 tablet 5Active aspirin (SUBHA ASPIRIN) 325 MG tablet Take 1 tablet by mouth daily 30 tablet 5Active pregabalin (LYRICA) 75 MG capsule Indications:S/P total knee arthroplasty, leftTake 1 capsule by mouth every 12 hours as needed (Breakthrough pain) for up to 14 days. Max Daily Amount: 150 mg 28 capsule 5Active Active Problems ProblemNoted DateDiagnosed DateS/P total knee arthroplasty, left12/06/2024 Tbquozniyzin09/01/2023Piriformis syndrome of right side11/05/2022dhesive capsulitis of right cjdmiipg45/01/8920Wfsymdrmswbtwr15/20/2017Bradycardia 06/22/2016Chronic pain of left knee10/30/2015Essential truftuleoyac73/15/2015 Primary osteoarthritis of left knee02/18/2015 Resolved Problems ProblemNoted DateDiagnosed DateResolved DateMorbid Encounters DateTypeDepartmentCare JdptHvykeiivipt49/06/2025Care Coordination [facility] Plug Maker Fatou Saenz, RN Episode status: Closed (Care Transitions)01/04/2025 9:38 AM EDT - 01/04/2025 11:[address] [facility] Physical Therapy [address] [place], [place] [phone] Perez Whatley, PT Discharge Disposition: Home or Self Care01/03/2025are Coordination [facility] Plug Maker Felisa Nielsen LPN Episode status: Closed (Care Transitions)01/02/2025 9:15 AM EDT - 01/02/2025 11:[address] [facility] Therapy [address] [place], [place] [phone] Cresencio Longoria Discharge Disposition: Home or Self Care12/31/2024 9:56 AM EDT - 12/31/2024 11:[address] [facility] Physical Therapy [address] [place] [phone] Cresencio Longoria Discharge Disposition: Home or Self Care12/28/2024 8:27 AM EDT - 12/28/2024 11:[address] [facility] Physical Therapy [address] [place] [phone] Lenny Pollard PTA Discharge Disposition: Home or Self Care12/28/2024are Coordination [facility] Plug Maker Fatou Saenz, RN Episode status: Closed (Care Transitions)12/27/2024 3:16 PM EDT - 12/27/2024 6:05 PM [facility] [address] [place], [place] [phone] Marquise Almaraz MD Left knee pain, unspecified chronicity (Primary Dx) Discharge Disposition: Home or Self Care12/27/20247330Flcanv52/22/2025 7:45 AM EDT - 12/26/2024 11:[address] [facility] Physical Therapy [address] [place], [place] [phone] Cresencio Longoria Discharge Disposition: Home or Self Care12/25/2024are Coordination [facility] Plug Maker Fatou Saenz RN Episode status: Closed (Care Transitions)12/24/2024 10:53 AM EDT - 12/24/2024 11:[address] [facility] Physical Therapy [address] [place], [place] [phone] Billie Foss PTA Discharge Disposition: Home or Self Care12/21/2024 10:34 AM EDT - 12/21/2024 11:[address] [facility] Physical Therapy [address] [place] [phone] Lenny Pollard PTA Discharge Disposition: Home or Self Care12/19/2024 8:15 AM EDT - 12/19/2024 11:[address] [facility] Physical Therapy [address] [place] [phone] Lenny Pollard PTA Discharge Disposition: Home or Self Care12/17/2024 10:53 AM EDT - 12/17/2024 11:[address] [facility] Physical Therapy [address] [place] [phone] Karlee [place] PTA Discharge Disposition: Home or Self Care12/14/2024 9:24 AM EDT - 12/14/2024 11:[address] [facility] Physical Therapy [address] [place] [phone] Radha Cabrera PTA Discharge Disposition: Home or Self Care12/11/2024 12:33 PM EDT - 12/11/2024 11:[address] [facility] Physical Therapy [address] [place] [phone] Perez Hernandez, PT Discharge Disposition: Home or Self Care12/10/2024 10:30 AM EDT - 12/10/2024 11:[address] [facility] Physical Therapy [address] [place] [phone] Perez Whatley, PT Discharge Disposition: Home or Self Care12/10/2024are Coordination [facility] Plug Maker Fatou Saenz RN Episode status: Closed (Care Transitions)12/06/2024 12:40 PM EDT - 12/06/2024 3:[address] 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 [address] [place] [phone] Perez Bolaños MD S/P total knee arthroplasty, left (Primary Dx) Discharge Disposition: Home or Self Care12/06/20247427Sapxea54/23/2025 8:11 AM EDT - 11/27/2024 11:[address] [facility] Physical Therapy [address] [place] [address] Perez Whatley, PT Discharge Disposition: Home or Self Care11/27/2024bstract [facility] [address] [place] [phone] Chino Yoder APRN - TEA TASTER 11/23/2024 1:00 PM EDTOffice Visit [facility] [address] [place] [phone] Chino Yoder APRN - TEA TASTER Medicare annual wellness visit, subsequent (Primary Dx); Essential hypertension; Preop examination; Chronic pain of left knee; Need for influenza iuazftvfrsr28/15/2025 10:32 AM EDT - 11/21/2024 11:59 PM EDT Hospital En[facility] [address] [place] [address] [phone] Discharge Disposition: Home or Self Care11/19/2024 9:54 AM EDT - 11/21/2024 11:59 PM EDTHospital Encounter [facility] [address] [place] [address] [phone] Discharge Disposition: Home or Self Care11/19/2024 8:53 AM EDT - 11/23/2024 11:59 PM EDTHospital Encounter [facility] PRE ADMIT [address] [place] [address] [phone] Discharge Disposition: Home or Self Carefrom Last 3 Months Immunizations ImmunizationAdministration DatesNext DueCOVID-19, Inactive, MODERNA BLUE border, Primary or Immunocompromised, (age 12y+)06/16/2021,01/16/2021,05/22/2020, 1COVID-19, SPIKEVAX (Moderna), (age 12y+), IM, 50mcg/0.5mL12/01/2022 Influenza Virus Bfapitu6612/17/2014Influenza, FLUAD, (age 65 y+), IM, Quadv, 0.5mL 11/26/2022,11/27/2021,12/20/2019Influenza, FLUAD, (age 65 y+), IM, Trivalent PF, 0.5mL11/23/2024,11/14/2023Influenza, FLUARIX, FLULAVAL, FLUZONE (age 6 mo+) and AFLURIA, (age 3 y+), Quadv PF, 0.5mL01/11/2019,01/02/2018,01/27/2016Influenza, FLUZONE High Dose (age 65 y+), IM, Quadv, 0.7mL1Pneumococcal, PCV20, PREVNAR 20, (age 6w+), IM, 0.5mL3Pneumococcal, PPSV23, PNEUMOVAX 23, (age 2y+), SC/IM, 0.5mL07/16/2019RSV, ABRYSVO, ( or age 60y+), PF, IM, 0.5mL12/02/2022TDaP, ADACEL (age 10y-64y), BOOSTRIX (age 10y+), IM, 0.5mL 10/30/2015Zoster Recombinant (Shingrix)11/17/2020,09/12/2020 Family History Medical HistoryRelationNameCommentsOtherFatherDPfell out side in winter and froze to deathArthritisMotherDorisOtherMotherDorisblood clotHigh Blood Pressure SisterRelationNameStatusCommentsFatherDPDeceasedMaternal GrandfatherDeceased Maternal GrandmotherDeceasedMotherDorisDeceasedPaternal GrandfatherDeceased Paternal GrandmotherDeceasedSisterAlive Social History Tobacco UseTypesPacks/DayYears UsedDateSmoking Tobacco: NeverSmokeless Tobacco: Never Tobacco Cessation:Counseling Given: Not Answered Comments:never smoked Alcohol UseStandard Drinks/WeekCommentsNot Currently0 (1 [...] like food, housing, medical care, and heating?Patient /06/2024PHQ-2AnswerDate RecordedPHQ-9 Total Roltw660Exercise Vital SignAnswerDate RecordedOn average, how many days per week do you engage in moderate to strenuous exercise (like a brisk walk)?6 days11/11/2023On average, how many minutes do you engage in exercise at this level?60 min4PRAPARE - TransportationAnswerDate RecordedIn the past 12 months, [...] sleep or slept in ashelter (including now)?Patient veuictzf75/06/2024 Housing Stability Vital SignAnswerDate RecordedIn the last 12 months, was there a time when you were not able to pay the mortgage or rent on time?No12/06/2024In the past 12 months, how many times have you moved where you were living?0 12/06/2024t any time in the past 12 months, were you homeless or living in a [place] (including now)?No12/06/2024UDIT-CAnswerDate RecordedQ1: How often do you [...] Domain Source: IP Abuse ScreeningAnswerDate Recorded Physical tevjbWeijvf43/02/2025Verbal rlxbxMimaro14/02/2025Emotional abuseDenies 12/06/2024Financial rsddwRozurg03/02/2025Sexual rzcmxScrgpd93/02/2025 CommentsNoSex and Gender InformationValueDate RecordedSex Assigned at Esjfzw5411/11/2023 8:21 AM EDTLegal ZkgHvxiiq08/10/2013 9:23 AM ESTGender Identity Cbhwmo2311/11/2023 8:21 AM EDTSexual OrientationNot on file Last Filed Vital Signs Vital SignReadingTime TakenCommentsBlood Dyogqwzm212/7112/27/2024 6:00 PM EDT Jarnf991812/27/2024 6:00 PM KPRExgaqngptjs32.1 ??C (98.7 ??F)12/27/2024 3:18 PM EDTRespiratory Xcwh9920 6:00 PM EDTOxygen Iisfdgeiwa42%12/27/2024 6:00 PM EDTInhaled Oxygen Concentration--Jnfokt93.1 kg (161 lb 1.6 oz)12/07/2024 5:30 AM TREKcxkfk306.9 cm (5' 1 )12/06/2024 9:57 AM EDTBody Mass Index30.441 9:57 AM EDT Plan of Treatment DateTypeDepartmentCare Team (Latest Contact Info)Ipjgerkyjsq92/19/2026 2:20 PM EDTOffice Visit [facility] [address] [place] [phone] Chino Yoder, YURI - CHANEL [address] [place] [address] 6 month check11/28/2025 2:20 PM EDTOffice Visit [facility] [address] [place] [phone] Chino Yoder Mari, TANNING WHEEL OPERATOR - TEA TASTER [address] [facility] [place] [address] AWVHealth MaintenanceDue DateLast DoneCommentsHepatitis C yhvemu4804/07/1972 Sigmoidoscopy/CT nhnnqimlsadq07/01/1161Lblujksolur96FIT/FOBT: Average risk/TaP/Tdap/Td vaccine (2 - Td or Tdap)10/29/2025 10/30/2015Depression Tbfpmt66/, 11/22/2024reast cancer screen /, 11/11/2022, 10/22/2021, Additional history exists Colorectal Cancer Bvqjxf0412/04/2027Fecal-DNA (Cologuard): Average risk12/04/2027 12/03/2024, 11/26/20210845Geetpu49/05/203003/07/2024, 05/09/2023, 08/05/2022, Additional history existsDiabetes djtaqzKdhkeqzhcxmn26/18/2016DEXA (modify frequency per FRAX score)Hhlxcyibd24/06/2017Shingles zzilivuMxldxydhs57/13/2021, 09/12/2020espiratory Syncytial Virus (RSV) or age 60 yrs+Completed 3Pneumococcal 50+ years YssmqhnGyerkjkdf54/17/2024, 12/22/2022, 07/16/2019Annual Wellness Visit (Medicare Advantage)Knqcpdckt14/19/2025, 11/14/2023, 11/05/2022, Additional history existsFlu ekpraqxShbkibdmu58/19/2025, 11/14/2023, 11/26/2022, Additional history existsCOVID-19 VaccineCompleted 12/26/2024, 08/06/2024, 11/24/2023, Additional history existsHepatitis A vaccine Aged OutNo longer eligible based on patient's age to complete this topic Hepatitis B vaccineAged OutNo longer eligible based on patient's age to complete this topicHib vaccineAged OutNo longer eligible based on patient's age to complete this topicMeningococcal (ACWY) vaccineAged OutNo longer eligible based on patient's age to complete this topicMeningococcal B vaccineAged OutNo longer eligible based on patient's age to complete this topicPolio vaccineAged OutNo longer eligible based on patient's age to complete this topic Goals GoalPatient Goal TypeAssociated ProblemsRecent ProgressPatient-Stated?Author loose weight LifestyleNoFuhrMelodie barnes [employer] ImplantedTypeAreaManufacturerDevice IdentifierShelf Expiration DateModel / Serial / LotImpl Knee Psn Fem Cr Cmt Ccr Std Sz8 L - [id number] Implanted:Qty: 1 [facility] 12[facility]06[facility] [employer]nee[employer]-PMM09/02/[id number] / / [id number] Bne 40gm Hi Visc Radpq For Rev Surg - [id number] Implanted:Qty: 2 on 12/06/20[facility] Knee[employer]IMMER [employer]-[id number] / / [id number] Stem Sz E 5deg L Tibl Knee Reed Shelley Tib Persona - [id number] Implanted:Qty: 1 on 12/06/2024 by Perez Bolaños MD at [facility]: Knee[employer]IMMER [employer]-[id number] / / [id number] Pat Scu56ps Thk8.5mm Std Knee Vivacit-E Reed - [id number] Implanted:Qty: 1 on 12/06/2024 by Perez Bolaños MD at [facility]: Knee[employer]IMMER [employer]-WD06/14/[id number] / / [id number] Mc Ve Asf L 14mm 8-11 Ef - [id number] Implanted:Qty: 1 on 12/06/2024 [facility] [employer]-WD02/10/[id number] / / [id number] Procedures Procedure NamePriorityDate/TimeAssociated DiagnosisCommentsVAS DUP LOWER EXTREMITY VENOUS GXQIBQRL15/23/2025 4:23 PM EDT PROTIME-MXAAXZE8512/27/2024 4:05 PM EDT CBC WITH AUTO YRAEHBLDLMLLTTSZ19/23/2025 4:05 PM EDT BASIC METABOLIC OFDUGJWDT12/23/2025 4:05 PM EDT XR KNEE LEFT (3 VIEWS)STAT1 3:57 PM EDT HEMOGLOBIN AND ZRSEWYPZPKRqvwdrc92/03/2025 5:50 AM EDT BASIC METABOLIC AMGCPVlzbnmp92/03/2025 5:50 AM EDT XR KNEE LEFT (1-2 VIEWS)Ahtxtie3112/06/2024 3:33 PM EDT OK ARTHRP KNE CONDYLE&PLATU MEDIAL&LAT ENMYUEIUATYA02/02/2025 12:34 PM EDT Left knee pain, unspecified chronicity Special Needs Kimi kbnqcge92 hour observationRegional/spinalNeeds preop medical clearanceAssist-Evelyne notified 11/27 start time 1240Block per anesthesia ANESTHESIA SPINAL VWPTINcifise67/02/2025 12:33 PM EDT HC PERIPHERAL BLOCK - FEMORAL SINGLE OR SAPHENOUS W/IMG GCIPwovexl32/02/2025 12:20 PM EDT XR CHEST (2 VW)Qbhjnvz7311/19/2024 10:34 AM EDT EKG 12-TAFDFchyrwk72/15/2025 9:45 AM EDT TYPE AND JYFSJWQsgzhpx23/15/2025 9:38 AM EDT MICROSCOPIC WTIJMOHDDSHbjswbw93/15/2025 9:38 AM EDT URINALYSIS WITH REFLEX TO BLJPXHSXzwmsor59/15/2025 9:38 AM EDT STUIErbxtyr58/15/2025 9:38 AM EDT PROTIME-EVVJwekrba38/15/2025 9:38 AM EDT COMPREHENSIVE METABOLIC ZUVFHUfzqxkw38/15/2025 9:38 AM EDT CBC WITH AUTO UGVOGJBVEZWDIjaevoz69/15/2025 9:38 AM EDT MRSA DNA PROBE, SWCERUjvzgef51/15/2025 9:38 AM EDT LIPID OLNSKUnzcstt41/05/2025 7:04 AM EST Essential hypertension Dyslipidemia ROHITH ASH DIGITAL SCREEN SELF REFERRAL W OR WO CAD NVXAMYJSHSiffkmt20/27/2024 11:18 AM EDT Visit for screening mammogram FECAL DNA COLORECTAL CANCER SCREENING (COLOGUARD)Ucqoyqe4411/26/2021 6:25 AM EDT Screening for colorectal cancer POCT FECAL IMMUNOCHEMICAL TEST (FIT)Rlxlgzk6508/29/2020 1:43 PM EDT Colon cancer screening DEXA BONE DENSITY AXIAL COAJXZRSZxlhhbg97/06/2017 9:55 AM EDT Postmenopausal HEMOGLOBIN O9MSobjoyr48/18/2016 1:22 PM EDT Elevated glucose from Last 3 Months or Most Recently Relevant to Health Maintenance Results * Vascular duplex lower extremity venous left (12/27/2024 4:23 PM EDT)Anatomical RegionLateralityModalityVascular UltrasoundSpecimen (Source)Anatomical Location / LateralityCollection Method / VolumeCollection TimeReceived Time Narrative 12/27/2024 8:30 PM EDT No evidence of acute deep vein or superficial vein thrombosis in the left lower extremity. Right Lower Venous For comparison purposes, the right common femoral vein was briefly interrogated. The vein demonstrates normal color filling and compressibility. Doppler flow was phasic and spontaneous. Left Lower Venous No evidence of acute deep vein or superficial vein thrombosis. The common femoral, saphenofemoral junction, profunda femoral, femoral, popliteal, greater saphenous, and small saphenous veins were imaged in the transverse view and showed normal compressibility. The common femoral, popliteal, and middle femoral veins were imaged in the longitudinal view and showed normal color filling and normal phasic and spontaneous flow. Common Femoral Vein: Patent, compressible and fully compressible. Greater Saphenous Vein: Fully compressible. Vessel and ankle patent, compressible. Saphenofemoral Junction: Patent, compressible. Small Saphenous Vein: Patent, compressible and fully compressible. Profunda Femoral Vein: Patent, compressible. Femoral Vein: Patent, compressible. Proximal Femoral Vein: Patent, compressible and fully compressible. Middle Femoral Vein: Patent, compressible and fully compressible. Distal Femoral Vein: Patent, compressible and fully compressible. Popliteal Vein: Patent, compressible and fully compressible. Gastrocnemius Vein: Patent, compressible and fully compressible. Posterior Tibial Vein: Patent, compressible and fully compressible. Peroneal Vein: Patent, compressible and fully compressible. Flat Knitter Details A mckeon scale, color Doppler imaging, spectral Doppler analysis and B-mode ultrasound was performed.During the study longitudinal and transverse views were obtained. Pulsed wave doppler was performed. Overall the study quality was good. Authorizing ProviderResult TypeResult StatusIlya [facility] VASCULAR ORDERABLES Final Result * (ABNORMAL) CBC with Auto Differential (12/27/2024 4:05 PM EDT) Only the most recent of2 resultswithin the time period is included. ComponentValueRef RangeTest MethodAnalysis TimePerformed AtPathologist Signature WBC4.03.5 - 11.3 k/uL12/27/2024 4:05 PM [facility] LABRBC 3.92(L)3.95 - 5.11 m/uL12/27/2024 4:05 PM [facility] Rmfkvhkrkq63.6(L)11.9 - 15.1 g/dL12/27/2024 4:05 PM [facility] JEANgibvfrgun80.6(L)36.3 - 47.1 %12/27/2024 4:05 PM [facility] LKEVER62.882.6 - 102.9 fL12/27/2024 4:05 PM [facility] FKMYBH63.625.2 - 33.5 pg12/27/2024 4:05 PM [facility] NHETOTW14.628.4 - 34.8 g/dL12/27/2024 4:05 PM [facility] JKOQIB42.111.8 - 14.4 %12/27/2024 4:05 PM [facility] COHWwsvewngx216456 - 453 k/uL12/27/2024 4:05 PM [facility] LABMPV9.68.1 - 13.5 fL12/27/2024 4:05 PM [facility] LABNRBC Automated0.00.0 per 100 WBC12/27/2024 4:05 PM [facility] LABNeutrophils %4836 - 65 %12/27/2024 4:05 PM [facility] LABLymphocytes %3024 - 43 %12/27/2024 4:05 PM [facility] LABMonocytes %15(H)3 - 12 %12/27/2024 4:05 PM [facility] LABEosinophils %41 - 4 %12/27/2024 4:05 PM [facility] LABBasophils %3(H)0 - 2 %12/27/2024 4:05 PM [facility] LABImmature Granulocytes %00 %12/27/2024 4:05 PM [facility] LABNeutrophils Absolute1.911.50 - 8.10 k/uL12/27/2024 4:05 PM [facility] LABLymphocytes Absolute1.181.10 - 3.70 k/uL 12/27/2024 4:05 PM [facility] LABMonocytes Absolute0.610.10 - 1.20 k/uL12/27/2024 4:05 PM [facility] LABEosinophils Absolute0.170.00 - 0.44 k/uL12/27/2024 4:05 PM [facility] LABBasophils Absolute0.110.00 - 0.20 k/uL12/27/2024 4:05 PM [facility] LABImmature Granulocytes Absolute<0.030.00 - 0.30 k/uL12/27/2024 4:05 PM [facility] LABSpecimen (Source)Anatomical Location / LateralityCollection Method / VolumeCollection TimeReceived TimeBloodBLOOD SPECIMEN / Nbhfafq8212/27/2024 4:05 PM EDT1 4:11 PM EDT Narrative Authorizing ProviderResult TypeResult StatusMarquise Almaraz MDHEMATOLOGY ORDERABLES Final ResultPerforming OrganizationAddressCity/State/ZIP CodePhone Number [facility] [address] [phone] * Protime-INR (12/27/2024 4:05 PM EDT) Only the most recent of2 resultswithin the time period is included. ComponentValueRef RangeTest MethodAnalysis TimePerformed AtPathologist Signature Epovxqz50.712.0 - 15.0 sec12/27/2024 4:05 PM [facility] INR1. 4:05 PM [facility] LABComment: ? Therapeutic Range: Moderate Anticoagulant Intensity: INR = 2.0-3.0 High Anticoagulant Intensity: INR = 2.5-3.5 Specimen (Source)Anatomical Location / LateralityCollection Method / Volume Collection TimeReceived TimeBloodBLOOD SPECIMEN / Lmbwepv7612/27/2024 4:05 PM EDT 12/27/2024 4:11 PM EDT Narrative Authorizing ProviderResult TypeResult StatusMarquise Almaraz MDHEMATOLOGY ORDERABLES Final ResultPerforming OrganizationAddressCity/State/ZIP CodePhone Number [facility] [address] [id number], [facility] [phone] * (ABNORMAL) BMP (12/27/2024 4:05 PM EDT) Only the most recent of2 resultswithin the time period is included. ComponentValueRef RangeTest MethodAnalysis TimePerformed AtPathologist Signature Hixctk764095 - 145 mmol/L1 4:05 PM [facility] Potassium4.23.7 - 5.3 mmol/L1 4:05 PM [facility] WUWLamwvlac73921 - 107 mmol/L1 4:05 PM [facility] FCRBN38748 - 31 mmol/L1 4:05 PM [facility] Anion Gap99 - 16 mmol/L1 4:05 PM [facility] Nbjpbqk3928 - 99 mg/dL12/27/2024 4:05 PM [facility] LABBUN 24(H)8 - 23 mg/dL12/27/2024 4:05 PM [facility] Creatinine0.70.50 - 0.90 mg/dL12/27/2024 4:05 PM [facility] LABEst, Glom Filt Rate>90>60 mL/min/1.03x93312/27/2024 4:05 PM [facility] LABComment: ? These results are not intended for use in patients <18 years of age. ? eGFR results are calculated without a race factor using the 2020 CKD-EPI equation. Careful clinical correlation is recommended, particularly when comparing to results calculated using previous equations. The CKD-EPI equation is less accurate in patients with extremes of muscle mass, extra-renal metabolism of creatine, excessive creatine ingestion, or following therapy that affects renal tubular secretion. BUN/Creatinine Ratio34(H) - 4:05 PM [facility] LABCalcium9.48.6 - 10.4 mg/dL12/27/2024 4:05 PM [facility] LABSpecimen (Source)Anatomical Location / LateralityCollection Method / VolumeCollection TimeReceived TimeBloodBLOOD SPECIMEN / Yarlktj7512/27/2024 4:05 PM EDT1 4:11 PM EDT Narrative Authorizing ProviderResult TypeResult StatusIlya Rufina MDCHEMISTRY ORDERABLES Final ResultPerforming OrganizationAddressCity/State/ZIP CodePhone Number [facility] [address] [place] [address], [facility] [phone] * XR KNEE LEFT (3 VIEWS) (12/27/2024 3:57 PM EDT)Anatomical RegionLaterality ModalityThigh, Knee, LegComputed RadiographySpecimen (Source)Anatomical Location / LateralityCollection Method / VolumeCollection TimeReceived Time 12/27/2024 4:13 PM EDT Impressions 12/27/2024 4:14 PM EDT 1. Suprapatellar joint effusion. 2. Arthroplasty components in expected position and alignment. Narrative 12/27/2024 4:14 PM EDT EXAM: 3 VIEW(S) XRAY OF THE LEFT KNEE 12/27/2024 03:57:26 PM COMPARISON: 12/06/2024 CLINICAL HISTORY: Pain. FINDINGS: BONES AND JOINTS: Arthroplasty components in expected position and alignment. Suprapatellar joint effusion. No acute fracture. No focal osseous lesion. No joint dislocation. SOFT TISSUES: The soft tissues are unremarkable. Procedure Note Sebastien Adler MD - 12/27/2024 EXAM: 3 VIEW(S) XRAY OF THE LEFT KNEE 12/27/2024 03:57:26 PM COMPARISON: 12/06/2024 CLINICAL HISTORY: Pain. FINDINGS: BONES AND JOINTS: Arthroplasty components in expected position and alignment. Suprapatellarjoint effusion. No acute fracture. No focal osseous lesion. No jointdislocation. SOFT TISSUES: The soft tissues are unremarkable. IMPRESSION: 1. Suprapatellar joint effusion. 2. Arthroplasty components in expected position and alignment. Authorizing ProviderResult TypeResult StatusMarquise Almaraz MDIMG DIAGNOSTIC IMAGING ORDERABLESFinal Result * (ABNORMAL) Hemoglobin and Hematocrit (12/07/2024 5:50 AM EDT)ComponentValueRef RangeTest MethodAnalysis TimePerformed AtPathologist QnizmkijaSnetibaqrm77.7 (L)11.9 - 15.1 g/dL12/07/2024 5:50 AM [facility] Qsmwjavzmu46.9(L)36.3 - 47.1 %12/07/2024 5:50 AM [facility] LABSpecimen (Source)Anatomical Location / LateralityCollection Method / VolumeCollection TimeReceived TimeBloodBLOOD SPECIMEN / Qpxxkth2812/07/2024 5:50 AM EDT1 6:04 AM EDT Narrative Authorizing ProviderResult TypeResult StatusAbibridgette Murry PAHEMATOLOGY ORDERABLES Final ResultPerforming OrganizationAddressCity/State/ZIP CodePhone Number [facility] [address] [phone] * XR KNEE LEFT (1-2 VIEWS) (12/06/2024 3:33 PM EDT)Anatomical RegionLaterality ModalityThigh, Knee, LegComputed RadiographySpecimen (Source)Anatomical Location / LateralityCollection Method / VolumeCollection TimeReceived Time 12/06/2024 5:30 PM EDT Impressions 12/06/2024 5:30 PM EDT 1. Status post left total knee arthroplasty with well-seated tibial and femoral components in anatomic alignment 2. Soft tissue gas compatible with recent postoperative state Narrative 12/06/2024 5:30 PM EDT EXAM: 1 or 2 VIEW(S) XRAY OF THE left KNEE 12/06/2024 03:33:36 PM COMPARISON: None available. CLINICAL HISTORY: s/p left TKA. FINDINGS: BONES AND JOINTS: Arthroplasty noted. Tibial and femoral components are well-seated and in anatomic alignment. SOFT TISSUES: Soft tissue gas noted, compatible with recent postoperative state. Procedure Note Rocco Faye MD - 12/06/2024 EXAM: 1 or 2 VIEW(S) XRAY OF THE left KNEE 12/06/2024 03:33:36 PM COMPARISON: None available. CLINICAL HISTORY: s/p left TKA. FINDINGS: BONES AND JOINTS: Arthroplasty noted. Tibial and femoral components are well-seated and inanatomic alignment. SOFT TISSUES: Soft tissue gas noted, compatible with recent postoperative state. IMPRESSION: 1. Status post left total knee arthroplasty with well-seated tibial andfemoral components in anatomic alignment 2. Soft tissue gas compatible with recent postoperative state Authorizing ProviderResult TypeResult StatusAbibridgette Murry 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 Spinal Block Patient position: sitting Prep: ChloraPrep Patient monitoring: continuous pulse ox and frequent blood pressure checks Approach: midline Location: L4/L5 Guidance: paresthesia technique Provider prep: mask and sterile gloves Needle Needle type: Pencan Needle gauge: 22 G Needle length: 3.5 in Needle insertion depth: 2 cm Expiration date: 10/04/2026 Assessment Sensory level: T10 Events: cerebrospinal fluid Swirl obtained: Yes CSF: clear Attempts: 1 Hemodynamics: stable Preanesthetic Checklist Completed: patient identified, IV checked, site marked, risks and benefits discussed, surgical/procedural consents, equipment checked, pre-op evaluation, timeout performed, anesthesia consent given, oxygen available, monitors applied/VS acknowledged, fire risk safety assessment completed and verbalized and blood product R/B/A discussed and consented Authorizing ProviderResult TypeResult StatusOlivileandro Cameron CRNAANESTHESIA ORDERABLESFinal Result * HC PERIPHERAL BLOCK - FEMORAL SINGLE OR SAPHENOUS W/IMG GDN (12/06/2024 12:20 PM EDT) Narrative Tara Lemon APRN - CRNA - 12/06/2024 12:20 PM EDT Tara Lemon APRN - CRNA 12/06/2024 12:40 PM Peripheral Block Patient location during procedure: pre-op Reason for block: post-op pain management and at surgeon's request Start time: 12/06/2024 12:20 PM End time: 12/06/2024 12:30 PM Staffing Performed: resident/CR[employer] 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 Preanesthetic Checklist Completed: patient identified, IV checked, site marked, risks and benefits discussed, surgical/procedural consents, equipment checked, pre-op evaluation, timeout performed, anesthesia consent given, oxygen available, monitors applied/VS acknowledged, fire risk safety assessment completed and verbalized and blood product R/B/A discussed and consented Peripheral Block Patient position: supine Prep: ChloraPrep Provider prep: mask and sterile gloves Patient monitoring: continuous pulse ox, IV access and responsive to questions Block type: Femoral and iPacks (adductor canal) Laterality: left Injection technique: single-shot Guidance: ultrasound guided Needle Needle type: Other Needle gauge: 22 G Needle localization: ultrasound guidance Needle length: 8 cmOther needle type: Pajunk Assessment Injection assessment: negative aspiration for heme, no paresthesia on injection, local visualized surrounding nerve on ultrasound, no intravascular symptoms and low pressure verified by pressure monitor Paresthesia pain: none Slow fractionated injection: yes Hemodynamics: stable Outcomes: uncomplicated and patient tolerated procedure well Authorizing ProviderResult TypeResult StatusEmflavio Cameron CRNAANESTHESIA ORDERABLESFinal Result * XR CHEST (2 VW) (11/19/2024 10:34 AM EDT)Anatomical RegionLateralityModality ChestComputed RadiographySpecimen (Source)Anatomical Location / Laterality Collection Method / VolumeCollection TimeReceived IoqvFgifk75/16/2025 9:39 AM EDT Impressions 11/20/2024 9:39 AM EDT No acute findings. Narrative 11/20/2024 9:39 AM EDT EXAMINATION: TWO XRAY VIEWS OF THE CHEST 11/19/2024 10:32 am COMPARISON: None. HISTORY: ORDERING SYSTEM PROVIDED HISTORY: pre op TECHNOLOGIST PROVIDED HISTORY: pre op FINDINGS: Lungs are clear. ??No pneumothorax or pleural effusion. ??Cardiac and mediastinal silhouettes unremarkable. ??Granulomatous calcifications noted. Osseous structures intact. Procedure Note Frederic Hines DO - 11/20/2024 EXAMINATION: TWO XRAY VIEWS OF THE CHEST 11/19/2024 10:32 am COMPARISON: None. HISTORY: ORDERING SYSTEM PROVIDED HISTORY: pre op TECHNOLOGIST PROVIDED HISTORY: pre op FINDINGS: Lungs are clear. No pneumothorax or pleural effusion. Cardiac and mediastinal silhouettes unremarkable. Granulomatous calcificationsnoted. Osseous structures intact. IMPRESSION: No acute findings. Authorizing ProviderResult TypeResult StatusPerez Bolaños MDIMG DIAGNOSTIC IMAGING ORDERABLESFinal Result * EKG 12 Lead (11/19/2024 9:45 AM EDT)ComponentValueRef RangeTest MethodAnalysis TimePerformed AtPathologist SignatureVentricular Sdfh72SUWZGFZ [facility] RADIOLOGY Atrial Ilzb76RVPUIOF [facility] RADIOLOGYP-R Ojlvgewi199smEQXN [facility] RADIOLOGYQRS Xkupsgxj27syBJHR [facility] RADIOLOGYQ-T Vtsqyxph052qhPDVN [facility] RADIOLOGYQTc Calculation (Bazett)419msMHPN [facility] RADIOLOGYP Mzvs20fuvmcnoNCPF [facility] RADIOLOGYR Kgab3jehvuzfAPLV [facility] RADIOLOGYT Vvvt60ixvqmemHAKT [facility] RADIOLOGYSpecimen (Source)Anatomical Location / LateralityCollection Method / VolumeCollection TimeReceived Time11/19/2024 9:[address] [facility] RADIOLOGY - 11/20/2024 11:59 AM EDT Sinus bradycardia Otherwise normal ECG When compared with ECG of 21-Jun-2016 19:34, No significant change was found Confirmed by Maykel Shafer ([id number]) on 11/20/2024 11:59:06 AM Procedure Note Maykel Shafer MD - 11/20/2024 Sinus bradycardia Otherwise normal ECG When compared with ECG of 21-Jun-2016 19:34, No significant change was found Confirmed by Maykel Shafer ([id number]) on 11/20/2024 11:59:06 AM Authorizing ProviderResult TypeResult Darlene Bolaños MDECG ORDERABLESFinal ResultPerforming OrganizationAddressCity/State/ZIP CodePhone Number [facility] RADIOLOG[facility] * (ABNORMAL) Urinalysis with Reflex to Culture (11/19/2024 9:38 AM EDT)Component ValueRef RangeTest MethodAnalysis TimePerformed AtPathologist SignatureColor, QCKlunkwSzwelo30/15/2025 9:38 AM [facility] LABTurbidity FGTmbgjXlupp67/15/2025 9:38 AM [facility] LABGlucose, Ur NEGATIVENEGATIVE mg/dL11/19/2024 9:38 AM [facility] Bilirubin, KcfjvVUGVHCCRDDCZXVBP57/15/2025 9:38 AM [facility] LABKetones, UrineNEGATIVENEGATIVE mg/dL11/19/2024 9:38 AM [facility] LABSpecific [place], UA<1.005(L)1.010 - 1.0350211/19/2024 9:38 AM [facility] LABUrine NszITHHIMTIPSSXPNFA54/15/2025 9:38 AM [facility] LABpH, Urine7.55.0 - 9.009 9:38 AM [facility] LABProtein, UANEGATIVENEGATIVE mg/dL 11/19/2024 9:38 AM [facility] LABUrobilinogen, Urine Normal0.0 - 1.0 EU/dL11/19/2024 9:38 AM [facility] Nitrite, JlezcGBZYNFGOHZYHEWPD93/15/2025 9:38 AM [facility] LABLeukocyte Esterase, UrineTRACE(A)OEVZINJV60/15/2025 9:38 AM EDT [facility] LABSpecimen (Source)Anatomical Location / LateralityCollection Method / VolumeCollection TimeReceived TimeUrine 11/19/2024 9:38 AM EDT11/19/2024 9:39 AM EDT Narrative Authorizing ProviderResult TypeResult Darlene LEO ORDERABLESFinal ResultPerforming OrganizationAddressCity/State/ZIP CodePhone Number [facility] [address] [place], [place] [id number] [phone] * (ABNORMAL) Microscopic Urinalysis (11/19/2024 9:38 AM EDT)ComponentValueRef RangeTest MethodAnalysis TimePerformed AtPathologist SignatureWBC, UA0 TO 20 - 5 /HPF11/19/2024 9:38 AM [facility] LABRBC, UA0 TO 20 - 2 /HPF11/19/2024 9:38 AM [facility] LABEpithelial Cells, UA 0 TO 20 - 25 /HPF11/19/2024 9:38 AM [facility] LABRenal Epithelial, UA0 TO 20 /HPF11/19/2024 9:38 AM [facility] LABBacteria, UATRACE(A)None11/19/2024 9:38 AM [facility] LABSpecimen (Source)Anatomical Location / LateralityCollection Method / Volume Collection TimeReceived Time11/19/2024 9:38 AM EDT11/19/2024 9:39 AM EDT Narrative Authorizing ProviderResult TypeResult Darlene LEO ORDERABLESFinal ResultPerforming OrganizationAddressCity/State/ZIP CodePhone Number [facility] [address] [place], [place] [address] [phone] * MRSA DNA Probe, Nasal (11/19/2024 9:38 AM EDT)ComponentValueRef RangeTest MethodAnalysis TimePerformed AtPathologist SignatureSpecimen Description.NASAL SWAB11/19/2024 9:38 AM [facility] LABORATORIESMRSA, DNA, NasalNEGATIVENEGATIVE 11/19/2024 9:38 AM EDTMOASIS BEH[facility]IORAL [facility]ALTH H[facility]PITALY LABORATORIESComment: NEGATIVE: ??MRSA DNA not detected by nucleic acid amplification. ? Results should be used as an adjunct to nosocomial control efforts to identify patients needing enhanced precautions. ?? The test is not intended to identify patients with staphylococcal infections. ??Results should not be used to guide or monitor treatment for MRSA infections. Specimen (Source)Anatomical Location / LateralityCollection Method / Volume Collection TimeReceived CpbwRedvq56/15/2025 9:38 AM EDT11/19/2024 9:39 AM EDT Narrative Authorizing ProviderResult TypeResult Darlene Bolaños MDMICROBIOLOGY - GENERAL ORDERABLESFinal ResultPerforming OrganizationAddressCity/State/ZIP Code Phone Number [facility] [address] [place], [place] [address] [phone] [phone] * APTT (11/19/2024 9:38 AM EDT)ComponentValueRef RangeTest MethodAnalysis Time Performed AtPathologist LcqnbfbokLNSY51.923.1 - 33.7 sec11/19/2024 9:38 AM EDT [facility] LABComment: ? IV Heparin Therapy Range: ?62.0-94.0 ? Specimen (Source)Anatomical Location / LateralityCollection Method / Volume Collection TimeReceived TimeBloodBLOOD SPECIMEN / Wltzyhp9311/19/2024 9:38 AM EDT 11/19/2024 9:39 AM EDT Narrative Authorizing ProviderResult TypeResult Darlene Bolaños MDHEMATOLOGY ORDERABLES Final ResultPerforming OrganizationAddressCity/State/ZIP CodePhone Number [facility] [address] [place] [address], [facility] [phone] * TYPE AND SCREEN (11/19/2024 9:38 AM EDT)ComponentValueRef RangeTest Method Analysis TimePerformed AtPathologist SignatureBlood Bank Sample Expiration 12/09/2024,09851811/19/2024 9:38 AM [facility] LABArm Band SyflvdZK5949801/15/2025 9:38 AM [facility] LABABO/RhO BFMZWCZE21/15/2025 9:38 AM [facility] LABAntibody Screen DTNWXUGI58/15/2025 9:38 AM [facility] LABSpecimen (Source)Anatomical Location / LateralityCollection Method / VolumeCollection TimeReceived TimeBloodBLOOD SPECIMEN / Qctnqgu2011/19/2024 9:38 AM EDT11/19/2024 9:39 AM EDT Narrative Authorizing ProviderResult TypeResult StatusPerez Bolaños MDBLOOD BANK TEST ORDERABLESFinal ResultPerforming OrganizationAddressCity/State/ZIP CodePhone Number [facility] [address] [phone] * (ABNORMAL) Comprehensive Metabolic Panel (11/19/2024 9:38 AM EDT)Component ValueRef RangeTest MethodAnalysis TimePerformed AtPathologist SignatureSodium 334627 - 145 mmol/L11/19/2024 9:38 AM [facility] Potassium5.33.7 - 5.3 mmol/L11/19/2024 9:38 AM [facility] LVCFuvwrnnp37505 - 107 mmol/L11/19/2024 9:38 AM [facility] UQVVZ79185 - 31 mmol/L11/19/2024 9:38 AM [facility] LABAnion Djd759 - 16 mmol/L11/19/2024 9:38 AM [facility] CAYSeyvkro2361 - 99 mg/dL11/19/2024 9:38 AM [facility] FWICNA804 - 23 mg/dL11/19/2024 9:38 AM [facility] LABCreatinine0.70.50 - 0.90 mg/dL11/19/2024 9:38 AM [facility] LABEst, Glom Filt Rate>90>60 mL/min/1.51v22411/19/2024 9:38 AM [facility] LABComment: ? These results are not intended for use in patients <18 years of age. ? eGFR results are calculated without a race factor using the 2020 CKD-EPI equation. Careful clinical correlation is recommended, particularly when comparing to results calculated using previous equations. The CKD-EPI equation is less accurate in patients with extremes of muscle mass, extra-renal metabolism of creatine, excessive creatine ingestion, or following therapy that affects renal tubular secretion. BUN/Creatinine Ratio23(H) - 9:38 AM [facility] LGORyocsai36.7(H)8.6 - 10.4 mg/dL11/19/2024 9:38 AM [facility] LABTotal Protein7.66.6 - 8.7 g/dL11/19/2024 9:38 AM [facility] LABAlbumin4.73.5 - 5.2 g/dL11/19/2024 9:38 AM [facility] LABAlbumin/Globulin Ratio1.61.0 - 2. 9:38 AM [facility] LABTotal Bilirubin0.20.00 - 1.20 mg/dL11/19/2024 9:38 AM [facility] LABAlkaline Ggxbdlgcldc4204 - 104 U/L 11/19/2024 9:38 AM [facility] JQRFKO9578 - 35 U/L11/19/2024 9:38 AM [facility] HWDHSO7935 - 35 U/L11/19/2024 9:38 AM [facility] LABSpecimen (Source)Anatomical Location / LateralityCollection Method / VolumeCollection TimeReceived TimeBloodBLOOD SPECIMEN / Bhlohby2611/19/2024 9:38 AM EDT11/19/2024 9:39 AM EDT Narrative Authorizing ProviderResult TypeResult Darlene Bolaños MDCHEMISTRY ORDERABLES Final ResultPerforming OrganizationAddressCity/State/ZIP CodePhone Number [facility] [address] [place] [id number], [facility] [phone] * (ABNORMAL) Lipid Panel (05/09/2024 7:04 AM EST)ComponentValueRef RangeTest MethodAnalysis TimePerformed AtPathologist SignatureCholesterol, Wsnke360(H)0 - 199 mg/dL03/07/2024 7:04 AM ESTMERCY LABORATORIESComment: Cholesterol Guidelines: <200 Desirable 200-240 ??Borderline >240 Undesirable HDL60>40 mg/dL05/09/2024 7:04 AM ESTMERCY LABORATORIESComment: HDL Guidelines: <40 Undesirable 40-59 ?Borderline >59 Desirable LDL Dttckwvwyuz148(H)0 - 100 mg/dL05/09/2024 7:04 AM [facility] Comment: LDL Guidelines: <100 Desirable 100-129 ?? Near to/above Desirable 130-159 ?? Borderline >159 Undesirable Direct (measured) LDL and calculated LDL are not interchangeable tests. Chol/HDL Ratio3.503 7:04 AM ESTMERCY WDAKJGQUPZROIeruovnkmrgyk20<150 mg/dL05/09/2024 7:04 AM ESTMERCY LABORATORIESComment: Triglyceride Guidelines: <150 Desirable 150-199 ??Borderline 200-499 ??High >499 Very high Based on AHA Guidelines for fasting triglyceride, December 2011. XAVG015 - 30 mg/dL05/09/2024 7:04 AM ESTMERCY LABORATORIESSpecimen (Source) Anatomical Location / LateralityCollection Method / VolumeCollection Time Received TimeBloodBLOOD SPECIMEN / Tgepruv5405/09/2024 7:04 AM EST05/09/2024 7:05 AM EST Narrative Authorizing ProviderResult TypeResult StatusBrett W Might TANNING WHEEL OPERATOR - CNPCHEMISTRY ORDERABLESFinal ResultPerforming OrganizationAddressCity/State/ZIP CodePhone Number [facility] [address] [place] [address], [facility] [phone] [facility] [address] [place] [address], [facility] [phone] * [facility] ASH DIGITAL SCREEN SELF REFERRAL W OR WO CAD BILATERAL (12/02/2023 11:18 AM EDT)Anatomical RegionLateralityModalityBreastBilateralMammographySpecimen (Source)Anatomical Location / LateralityCollection Method / VolumeCollection TimeReceived Time12/03/2023 12:38 PM EDT Impressions 12/03/2023 12:38 PM EDT No mammographic evidence of malignancy BIRADS: BIRADS - CATEGORY 1 Negative. ??Normal interval follow-up is recommended in 12 months. OVERALL ASSESSMENT - NEGATIVE A letter of notification will be sent to the patient regarding the results. The [employer] recommends annual mammograms for women 40 years and older. Performing Facility: [place] [id number] Narrative 12/03/2023 12:38 PM EDT EXAMINATION: SCREENING DIGITAL BILATERAL MAMMOGRAM WITH TOMOSYNTHESIS, 12/02/2023 TECHNIQUE: Screening mammography of the bilateral breasts was performed with tomosynthesis. ??2D standard and 3D tomosynthesis combination imaging performed through both breasts in the MLO and CC projection. ??Computer aided detection was utilized in the interpretation of this exam. COMPARISON: November 11, 2022 and October 22, 2021 HISTORY: Screening. FINDINGS: There are scattered areas of fibroglandular density. ??There is no dominant mass, architectural distortion or concerning grouping of microcalcification in either breast. Authorizing ProviderResult TypeResult StatusBrejames W Might TANNING WHEEL OPERATOR - CNPIMG MAMMOGRAPHY ORDERABLESFinal Result * POCT Fecal Immunochemical Test (FIT) (08/29/2020 1:43 PM EDT)ComponentValueRef RangeTest MethodAnalysis TimePerformed AtPathologist SignatureOccult Blood FecalnegativeControlpresentSpecimen (Source)Anatomical Location / Laterality Collection Method / VolumeCollection TimeReceived TimeSTOOL SPECIMEN / Unknown 08/29/2020 1:43 PM EDT Narrative Authorizing ProviderResult TypeResult StatusBrejames Guerra Might TANNING WHEEL OPERATOR - CNPPOINT OF CARE TEST ORDERABLESFinal Result * DEXA BONE DENSITY AXIAL SKELETON (11/10/2016 9:55 AM EDT)Anatomical Region LateralityModalityHead, C-spine, T-spine, L-spine, ChestRadiographic Imaging Specimen (Source)Anatomical Location / LateralityCollection Method / Volume Collection TimeReceived Time11/10/2016 10:00 AM EDT Impressions 11/10/2016 11:25 AM EDT Osteopenia of both femoral necks Narrative 11/10/2016 11:25 AM EDT REPORT: DEXA scan TECHNIQUE: Routine bone densitometry of the lumbar spine and hips performed. INDICATION: Postmenopausal female, screening FINDINGS: Baseline exam. Combined T score of the lumbar spine is normal at 2.2. T score of the leftfemoral neck is osteopenic at -1.4. T score of the right femoral neck is osteopenic at -1.1. Final report electronically signed by Maritza Clarke on 11/10/2016 11:25 AM Procedure Note Maritza Clarke MD - 11/10/2016 REPORT: DEXA scan TECHNIQUE: Routine bone densitometry of the lumbar spine and hipsperformed. INDICATION: Postmenopausal female, screening FINDINGS: Baseline exam. Combined T score of the lumbar spine is normal at2.2. T score of the left femoral neck is osteopenic at -1.4. T score ofthe right femoral neck is osteopenic at -1.1. Final report electronically signed by Maritza Clarke on 11/10/2016 11:25 AM IMPRESSION: Osteopenia of both femoral necks Authorizing ProviderResult TypeResult StatusRobin Yvon Marquez TANNING WHEEL OPERATOR - CNPIMG DEXA ORDERABLESFinal Result * Hemoglobin A1C (07/23/2015 1:22 PM EDT)ComponentValueRef RangeTest Method Analysis TimePerformed AtPathologist SignatureHemoglobin A1C5.34.8 - 5.9 % 07/23/2015 1:56 PM EDTMHPN LABEstimated Avg Pmctyae284wa/dL07/23/2015 1:56 PM EDTMHPN LABComment: The ADA and AACC recommend providing the estimated average glucose result to permit better patient understanding of their HBA1c result. Performed at [address] [place] [address] ([phone] Specimen (Source)Anatomical Location / LateralityCollection Method / Volume Collection TimeReceived TimeBLOOD SPECIMEN / Tvqplwl1807/23/2015 1:22 PM EDT 07/23/2015 1:23 PM EDT Narrative Authorizing ProviderResult TypeResult StatusRobin Yvon Stump TANNING WHEEL OPERATOR - CNPCHEMISTRY ORDERABLESFinal ResultPerforming OrganizationAddressCity/State/ZIP CodePhone Number [facility] [address] [place] [address], [facility] [phone] [facility] from Last 3 Months or Most Recently Relevant to Health Maintenance Insurance Advance Directives * Full Code (Latest Code Status on File) Date ActivatedDate NcnlbbercttBbnlckzf39/2/2025 9:51 AM12/07/2024 2:20 PM NameRelationshipHealthcare Agent RelationshipCommunicationNorman Obie Primary Decision Maker* Care Teams Team MemberRelationshipSpecialtyStart DateEnd Date Might, Chino Guerra, TANNING WHEEL OPERATOR - TEA TASTER [address] [place] [address] PCP - GeneralFamily Medicine11/23/24
--- OUTSIDE RECORDS SUMMARY | 2025-01-17 14:13 | XMS_ITS | Encounter Summary ---
[facility] Address [address], [address] [place] [address] Care Team Providers Care Cotton Converter Name Role Phone Chino Yoder DEPUTY CHIEF COUNSEL - FIRE CONTROL ASSISTANT Primary Care Provider Encounter Details DateTypeDepartmentCare Team (Latest Contact Info)Zyqffejemni35/06/2025Care Coordination [facility] Programmer Analyst Consultant Fatou Saenz RN Episode status: Closed (Care Transitions) Social History [...] like food, housing, medical care, and heating?Patient kaiqlnjp60/06/2024HQ-2AnswerDate RecordedPHQ-9 Total Leiex374Exercise Vital SignAnswerDate RecordedOn average, how many days [...] sleep or slept in ashelter (including now)?Patient gagikrvg66/06/2024 Housing Stability Vital SignAnswerDate RecordedIn the last 12 months, was there a time when you were not able to pay the mortgage or rent on time?No12/06/2024In the past 12 months, how many times have you moved where you were living?0 12/06/2024t any time in the past 12 months, were you homeless or living in a fdc (including now)?No12/06/2024UDIT-CAnswerDate RecordedQ1: How often do you [...] Domain Source: IP Abuse ScreeningAnswerDate Recorded Physical gdvvfXfvcbi72/02/2025Verbal tkrxzJglekp09/02/2025Emotional abuseDenies 12/06/2024Financial wbzpaKkstwu11/02/2025Sexual qnctmRurjgo42/02/2025 CommentsNoSex and Gender InformationValueDate RecordedSex Assigned at Xxtwff0311/11/2023 8:21 AM EDTLegal SrkIyuwsi59/10/2013 9:23 AM ESTGender Identity Jpxvkn1611/11/2023 8:21 AM EDTSexual OrientationNot on filedocumented as of this encounter Plan of Treatment DateTypeDepartmentCare Team (Latest Contact Info)Vfvqmvpbldd09/19/2026 2:20 PM EDTOffice Visit [address] [address] Chino Yoder, DEPUTY CHIEF COUNSEL - FIRE CONTROL ASSISTANT [address] [place] [address] 6 month check11/28/2025 2:20 PM EDTOffice Visit [address] [address] Chino Yoder, DEPUTY CHIEF COUNSEL - FIRE CONTROL ASSISTANT [address] [place] [address] AWVdocumented as of this encounter Goals GoalPatient Goal TypeAssociated ProblemsRecent ProgressPatient-Stated?Author loose weight LifestyleNoFuhrer, Cynthiadocumented as of this encounter Visit Diagnoses Not on filedocumented in this encounter Additional Health Concerns AssessmentNoted TimeA fall risk assessment has been completed for the patient 11/22/2024 11:11 AM EDTA Body Mass Index follow-up plan has been documented for the afoopgr6605/07/2022 7:18 AM ESTdocumented as of this encounter Care Teams Team MemberRelationshipSpecialtyStart DateEnd Date Might, Chino Guerra, DEPUTY CHIEF COUNSEL - FIRE CONTROL ASSISTANT [address] [phone] PCP - GeneralFamily Medicine11/23/24documented as of this encounter
--- NOTE | 2025-01-17 14:14 | MM_ITS ---
Patient Name: HUMA PEDRO MR#: [id number] : 1955 Exam Date: 01/17/2025 Ordering Doctor: GUSTAVO CHAWLA RADIOLOGY REPORT PROCEDURE: MM TOMOSYNTHESIS SCREENING BI COMPARISON: MM TOMOSYNTHESIS SCREENING BI, 12/02/2023. MM TOMOSYNTHESIS SCREENING BI, 11/11/2022. MM TOMOSYNTHESIS SCREENING BI, 10/22/2021. INDICATIONS: screening Calculator Name NCI Breast Cancer Risk Assessment Tool 5 Year Breast Cancer Risk Not Reported. Lifetime Breast Cancer Risk Not Reported. Personal Breast Cancer No Personal Ovarian Cancer No Treatments None Family Cancers None LOCATION: [facility] BREAST COMPOSITION: There are scattered areas of fibroglandular density. FINDINGS: RIGHT BREAST: No significant suspicious finding. LEFT BREAST: No significant suspicious finding. DIAGNOSTIC CATEGORY 1--NEGATIVE. RECOMMENDATIONS: ROUTINE MAMMOGRAM AND CLINICAL EVALUATION IN 12 MONTHS. Dictated by: Geo Thayer DO on 01/17/2025 at 16:15 Approved by: Geo Thayer DO on 01/17/2025 at 16:17
== END 2025-01-17 14:10 | disposition home or self-care (01) ==
LOC: MAMMO 14:09
DX: Z12.31 Encounter for screening mammogram for malignant neoplasm of breast (principal)
CPT/HCPCS: 77063; 77067